=== PATIENT | female | born 1980 | race Caucasian/White ===

== ENCOUNTER 2019-06-24 16:43 | Inpatient (IN) ==
--- OUTSIDE RECORDS SUMMARY | 2019-06-24 16:44 | External Medical Summary | Continuity of Care Document ---
:1980 Author Name Jaylen Olguin, Provider Address Unavailable Unavailable , Care Team Providers Name Role Phone Unavailable Unavailable Unavailable PCP, UNKNOWN Unavailable Unavailable Unavailable Unavailable Unavailable Problems Active medical history not documented Allergies and Adverse Reactions Allergy history not documented Medications Medications not documented Procedures Procedures not documented Immunizations Immunizations not documented Plan of Treatment Planned Observations Planned Goals not documented Results No Known Results Results not documented
[2019-06-24] MEDS ORDERED: SODIUM CHLORIDE 0.9% 1000ML 1,000 ML IV ONE (17:21)
[2019-06-24] MEDS ORDERED: DiphenhydrAMINE HCL 50 MG/ML VIAL IV STA (17:21)
[2019-06-24] MEDS ORDERED: PROCHLORPERAZINE 1 ML IV ONE (17:21)
[2019-06-24 17:45] LABS: Basophils # (auto) 0.01 K/uL (0-0.2); Basophils % (auto) 0.1 %; Eosinophils # (auto) 0.02 K/uL (0-0.5); Eosinophils % (auto) 0.2 %; Hematocrit (blood only) 41.3 % (37-47); Hemoglobin 13.8 g/dL (12.0-16.0); Immature Granulocytes # (auto) 0.03 K/uL (0.00-0.02); Immature Granulocytes % (auto) 0.3 %; Lymphocytes # (auto) 0.55 K/uL (1.2-3.4); Lymphocytes % (auto) 4.7 %; Mean Corpuscular Hemoglobin 28.5 pg (25-34); Mean Corpuscular Hgb Conc 33.4 g/dL (32-36); Mean Corpuscular Volume 85.3 fL (80-100); Mean Platelet Volume 10.6 fL (7.4-10.4); Monocytes # (auto) 0.86 K/uL (0.11-0.59); Monocytes % (auto) 7.3 %; Neutrophils # (auto) 10.33 K/uL (1.4-6.5); Neutrophils % (auto) 87.4 %; Platelet Count 202 K/uL (130-400); RDW Standard Deviation 43.7 fL (36.4-46.3); Red Blood Count 4.84 M/uL (4.2-5.4)
[2019-06-24 17:59] LABS: Base Excess VBG -0.2 mEq/L; HCO3 VBG 22 mmol/L; Oxygen Saturation VBG < 60.0 %; PCO2 VBG 31 mmHg (38-50); PO2 VBG 20 mmHg; pH VBG 7.48 (7.36-7.41)
[2019-06-24 18:02] LABS: Alanine Aminotransferase 946 U/L (12-78); Albumin Level 3.5 gm/dl (3.4-5.0); Aspartate Aminotransferase 318 U/L (15-37); BUN Creatinine Ratio 8.1 (10-20); Blood Urea Nitrogen 7 mg/dl (7-18); Calcium 8.2 mg/dl (8.5-10.1); Carbon Dioxide 21 mmol/L (21-32); Chloride 100 mmol/L (98-107); Est GFR (African American) 100.7; Est GFR (Non-African American) 86.9; Glucose 254 mg/dl (70-99); Lipase 25 U/L (73-393); Potassium 3.5 mmol/L (3.5-5.1); Sodium 132 mmol/L (136-145)
[2019-06-24 18:06] LABS: Appearance Urine Cloudy (Clear); Blood Urine 3+ (Negative); Color Urine Red; Glucose Urine UA 2+ (Negative); Ketones Urine 3+ (Negative); Leukocyte Esterase Urine Trace (Negative); Nitrite Urine Negative (Negative); Specific Gravity Urine 1.015 (1.000-1.030); Urobilinogen Urine Positive (Negative); pH Urine >= 9.0 (4.5-7.5)
[2019-06-24 18:07] LABS: Bilirubin Urine 2+ (Negative); Protein Urine 2+ (Negative)
[2019-06-24 18:09] LABS: Ictotest Urine Positive (Negative); Sulfosalicylic Acid Urine Positive (Negative)
[2019-06-24 18:09] LABS: Albumin Globulin Ratio 0.9 (0.9-2); Alkaline Phosphatase 258 U/L (45-117); Bilirubin,Total 6.8 mg/dl (0.2-1); Globulin 3.8 gm/dl (2.5-4.0); Total Protein 7.3 gm/dl (6.4-8.2); Troponin I < 0.015 ng/ml (0-0.045)
[2019-06-24 18:13] LABS: Bacteria Urine 1+ (Negative); Epithelial Cell Urine >30 /lpf (0-5); RBC Urine >30 /hpf (0-4); WBC Urine >30 /hpf (0-5)
--- NOTE | 2019-06-24 18:14 | XRay Report ---
XR abdomen 2V w PA chest CLINICAL HISTORY: 38 years-old Female presenting with generalized abdominal pain, sob. TECHNIQUE: PA view of the chest and supine and upright views of the abdomen were obtained. COMPARISON: Chest x-ray from 12/10/2015. FINDINGS: Cardiomediastinal silhouette normal. No focal opacity. No large effusion or pneumothorax. Suture lines may be present in the epigastrium and left mid abdomen suggesting Jessi-en-Y gastric bypa ss. Nonobstructive bowel gas pattern. No gross pneumoperitoneum. Evaluation limited by patient body h abitus. Allowing for bowel gas and stool, no calcifications to suggest nephrolithiasis. Osseous structures normal. IMPRESSION: 1. No acute cardiopulmonary disease. 2. No radiographic evidence of acute intra-abdominal pathology. ACT 112: Negative or not required by law. Electronically signed by: Jones Platt M.D. 06/24/2019 6:13 PM
[2019-06-24] MEDS ORDERED: PIPERACILL/TAZOBAC CONSULT ACTIVE PRN (18:34)
[2019-06-24] MEDS ORDERED: PIPERACILLIN/TAZOBACTAM 4.5 GM/120 ML BAG IV ONE (18:34)
[2019-06-24 18:52] LABS: INR 1.3 (0.9-1.1); Partial Thromboplastin Time 27.1 Seconds (21.0-31.0); Prothrombin Time 13.8 Seconds (9.0-12.0)
--- NOTE | 2019-06-24 19:53 | Ultrasound Report ---
US gallbladder CLINICAL HISTORY: 38 years-old Female presenting with ruq pain, elevated lfts. TECHNIQUE: Real-time grayscale and limited color Doppler ultrasound imaging of the abdomen limited to the right upper quadrant was performed. COMPARISON: None. FINDINGS: Pancreas: Largely obscured due to overlying bowel gas. Liver: Mildly hyperechogenic parenchyma, although the right hemidiaphragm remains visible, likely ind icating mild steatosis. The liver measures 17.6 cm in maximal sagittal dimension. Hypoechogenicity in the gallbladder fossa likely focal fatty sparing. Main portal vein patent with normal directional fl ow. Biliary: No intrahepatic biliary ductal dilatation. Common bile duct measures up to 3 mm in diameter. Gallbladder: Gallstones and gallbladder sludge. Top normal thickness of the gallbladder wall measurin g 3 mm. Physiologic gallbladder distention. No pericholecystic fluid. Sonographic Carranza's sign negat clarice. Right kidney: Normal in appearance without evidence of hydronephrosis. Ascites: None. Other: None. IMPRESSION: 1. Cholelithiasis and gallbladder sludge. No convincing evidence of cholecystitis. No biliary ductal dilatation. 2. Hepatic steatosis. Correlate with liver function tests to exclude steatohepatitis as a cause for abdominal pain. ACT 112: Negative or not required by law. Electronically signed by: Jones Platt M.D. 06/24/2019 7:52 PM
--- NOTE | 2019-06-24 20:53 | Emergency Department Note ---
History of Present Illness General Chief complaint: Shortness of Breath/Dyspnea Stated complaint: SOB,ACHES,COUGH Time Seen by Provider: 06/24/19 16:55 Source: patient Mode of arrival: ambulatory Limitations: no limitations History of Present Illness Maximum Pain Intensity: 8 This patient is a 38-year-old female who presents to the emergency department for evaluation of abdominal pain, vomiting, shortness of breath and fever/chills. She reports symptoms have been ongoing for the past 2 to 3 days. She was seen at [facility] last night and reports that she had a CT scan and was told that everything was normal. She reports she has had persistent vomiting and has been unable to keep anything down despite taking Zofran. She has abdominal pain primarily in the upper abdomen. She reports some shortness of breath and rapid breathing. She rates her discomfort an 8/10 and states that nothing makes the pain better or worse. She does report that a coworker informed her that his son tested positive for COVID-19. To her knowledge, the coworker himself was not symptomatic for COVID. The patient denies any urinary symptoms, cough or chest pain. She does note some body aches. She has felt feverish and had chills, but has not taken her temperature. Home Medications Home Medications Medication Instructions Recorded Confirmed Type acetaminophen [Tylenol] 650 mg PO QID PRN 06/24/19 06/24/19 History albuterol sulfate 2 puff INHALATION Q6H PRN 06/24/19 06/24/19 History atorvastatin [Lipitor] 10 mg PO DAILY 06/24/19 06/24/19 History biotin 1 mg PO DAILY 06/24/19 06/24/19 History calcium citrate 250 mg PO BID 06/24/19 06/24/19 History dulaglutide [Trulicity] 1.5 mg SUBCUT WK 06/24/19 06/24/19 History ergocalciferol (vitamin D2) 1,250 mcg PO 2XWK 06/24/19 06/24/19 History [Vitamin D2] gabapentin [Neurontin] 300 - 600 mg PO BID PRN 06/24/19 06/24/19 History insulin lispro [Humalog U-100 0 unit SUBCUT UD 06/24/19 06/24/19 History Insulin] lactulose 15 g PO BID PRN 06/24/19 06/24/19 History mometasone [Nasonex] 2 spray INTRANASAL DAILY PRN 06/24/19 06/24/19 History omeprazole 20 mg PO DAILY 06/24/19 06/24/19 History pediatric multivitamin no.76 1 tab PO DAILY 06/24/19 06/24/19 History [Flintstones Complete] riboflavin (vitamin B2) [Vitamin 400 mg PO DAILY 06/24/19 06/24/19 History B-2] sumatriptan succinate [Imitrex] 0 mg PO .COMPLEX 06/24/19 06/24/19 History terconazole 1 appful VAGINAL HS PRN 06/24/19 06/24/19 History triamcinolone acetonide 1 applic TOPICAL BID PRN 06/24/19 06/24/19 History Allergies Allergy/AdvReac Type Severity Reaction Status Date / Time metformin Allergy Unknown THROAT Verified 06/24/19 18:48 SWELLING topiramate [From Topamax] AdvReac Severe OUT OF Verified 06/24/19 18:48 BODY EXPERIENCE Past Med/Surg History Medical History (Updated 06/24/19 @ 23:38 by Albina Banks PA-C) Diabetes GERD (gastroesophageal reflux disease) Surgical History S/P gastric bypass Social History Feels Safe at Home: Yes Smoking Status: Former smoker Review of Systems A total of 10 systems reviewed and were otherwise negative Physical Exam Vital Signs Vital Signs - 24 hr 06/24/19 16:49 06/24/19 17:13 06/24/19 17:30 Temperature 37.3 C Temperature Source Oral Pulse Rate 132 H 118 H Pulse Rate [Left Finger] Pulse Rate from SpO2 Sensor 117 H Respiratory Rate 24 13 Respiratory Effort / Characteristics Non-Labored Respiratory Depth Normal Blood Pressure 113/80 123/65 Blood Pressure [Left Arm] Blood Pressure Mean 91 78 Blood Pressure Mean [Left Arm] Pulse Oximetry 100 96 99 Oxygen Delivery Method Room Air Room Air Room Air Sepsis Recent Fever Within 48 Hours No Sepsis Action Taken by Nursing No Action Required 06/24/19 17:47 06/24/19 18:00 06/24/19 18:30 Temperature Temperature Source Pulse Rate 123 H 125 H Pulse Rate [Left Finger] 117 H Pulse Rate from SpO2 Sensor Respiratory Rate 24 17 24 Respiratory Effort / Characteristics Respiratory Depth Blood Pressure 135/66 105/60 Blood Pressure [Left Arm] 123/65 Blood Pressure Mean 87 70 Blood Pressure Mean [Left Arm] 84 Pulse Oximetry 99 98 98 Oxygen Delivery Method Room Air Room Air Room Air Sepsis Recent Fever Within 48 Hours Sepsis Action Taken by Nursing 06/24/19 19:51 06/24/19 21:02 06/24/19 21:30 Temperature Temperature Source Pulse Rate 122 H 123 H Pulse Rate [Left Finger] Pulse Rate from SpO2 Sensor 125 H 120 H 123 H Respiratory Rate 20 17 20 Respiratory Effort / Characteristics Respiratory Depth Blood Pressure 112/65 117/71 Blood Pressure [Left Arm] Blood Pressure Mean 83 75 Blood Pressure Mean [Left Arm] Pulse Oximetry 95 97 95 Oxygen Delivery Method Room Air Room Air Room Air Sepsis Recent Fever Within 48 Hours Sepsis Action Taken by Nursing 06/24/19 22:00 06/24/19 23:00 Temperature Temperature Source Pulse Rate 111 H Pulse Rate [Left Finger] 115 H Pulse Rate from SpO2 Sensor Respiratory Rate 26 H 18 Respiratory Effort / Characteristics Respiratory Depth Blood Pressure 110/66 Blood Pressure [Left Arm] 100/61 Blood Pressure Mean 79 Blood Pressure Mean [Left Arm] 74 Pulse Oximetry 96 95 Oxygen Delivery Method Room Air Room Air Sepsis Recent Fever Within 48 Hours Sepsis Action Taken by Nursing VITALS: Vitals are noted on the nurse's note and reviewed by myself. Vital signs stable. GENERAL: This is a 38-year-old female, in no acute distress, well-developed w ell-nourished. SKIN: The skin was without rashes. EARS: External auditory canals clear, tympanic membranes pearly francois without erythema or effusion bilaterally. EYES: Pupils equal round and reactive to light and accommodation. NOSE: Patent, turbinates without inflammation or discharge. MOUTH: Mucous membranes moist. Tonsils are not enlarged. Pharynx without erythema or exudate. NECK: Supple without nuchal rigidity. No lymphadenopathy. HEART: Regular rate and rhythm without murmurs gallops or rubs. LUNGS: Tachypneic. Clear to auscultation bilaterally without wheezes, rales or rhonchi. No retractions or accessory muscle use. ABDOMEN: Positive bowel sounds x 4. Abdomen is soft and nondistended. There is moderate tenderness to palpation throughout the upper abdomen, specifically in the epigastric region and right upper quadrant. No guarding or rebound tenderness. EXTREMITIES: No pitting edema of the lower extremities. NEURO: Patient was alert and oriented to person place and time. Course Consultations Consultation #1: Dr. Perez CRUZ Hospitalist Administered Medications Discontinued Medications Diphenhydramine HCl (Benadryl) 25 mg IV NOW STA Stop: 06/24/19 17:22 Last Admin: 06/24/19 17:44 Dose: 25 mg Documented by: [id number] Sodium Chloride (Nss 1000ml) 1,000 mls @ 999 mls/hr IV .Q1H1M ONE Stop: 06/24/19 18:21 Last Infusion: 06/24/19 19:26 Dose: 0 mls/hr Documented by: [id number] Admin: 06/24/19 17:44 Dose: 999 mls/hr Documented by: [id number] Prochlorperazine (Compazine) 1 mls @ 1 mls/min IV ONE ONE Stop: 06/24/19 17:22 Last Admin: 06/24/19 17:44 Dose: 1 mls/min Documented by: [id number] Piperacillin Sod/Tazobactam Sod (Zosyn) 4.5 gm in 120 mls @ 240 mls/hr IV NOW ONE Stop: 06/24/19 19:03 Last Infusion: 06/24/19 19:57 Dose: 0 mls/hr Documented by: [id number] Admin: 06/24/19 19:26 Dose: 240 mls/hr Documented by: [id number] Medical Decision Making Differential Diagnosis Differential diagnosis includes appendicitis, diverticulitis, bowel obstruction, inflammatory bowel disease, renal colic, PUD, biliary pathology, pancreatitis, mesenteric ischemia, aortic pathology, infection, genitourinary, UTI, perforated viscus, among others. Medical Records Attestation: I reviewed the patient's medical records. Records obtained from [facility]. Patient seen yesterday and had a CT scan with no acute abnormalities, although cholelithiasis was noted. Labs yesterday showed AST 769, ALT 484 and alkaline phosphatase 217. Total bili was 1.6. Home Medications Current Medication List: was personally reviewed by me Laboratory Data Attestation: I reviewed the patient's lab results. Result diagrams: 06/24/19 17:34 06/24/19 17:34 Lab Results 06/24/19 06/24/1920 Range/Units 17:34 17:34 17:34 WBC 11.80 H (4.8-10.8) K/uL RBC 4.84 (4.2-5.4) M/uL Hgb 13.8 (12.0-16.0) g/dL Hct 41.3 (37-47) % MCV 85.3 (80-100) fL MCH 28.5 (25-34) pg MCHC 33.4 (32-36) g/dL RDW Std Deviation 43.7 (36.4-46.3) fL RDW Coeff of Maria Luz 14.0 (11.5-14.5) % Plt Count 202 (130-400) K/uL MPV 10.6 H (7.4-10.4) fL Immature Gran % (Auto) 0.3 % Neut % (Auto) 87.4 % Lymph % (Auto) 4.7 % [place] % (Auto) 7.3 % Eos % (Auto) 0.2 % Baso % (Auto) 0.1 % Immature Gran # (Auto) 0.03 H (0.00-0.02) K/uL Neut # (Auto) 10.33 H (1.4-6.5) K/uL Lymph # (Auto) 0.55 L (1.2-3.4) K/uL [place] # (Auto) 0.86 H (0.11-0.59) K/uL Eos # (Auto) 0.02 (0-0.5) K/uL Baso # (Auto) 0.01 (0-0.2) K/uL PT 13.8 H (9.0-12.0) Seconds INR 1.3 H (0.9-1.1) APTT 27.1 (21.0-31.0) Seconds PTT Ratio 1.0 VBG pH (7.36-7.41) VBG pCO2 (38-50) mmHg VBG pO2 mmHg VBG HCO3 mmol/L VBG O2 Saturation % VBG Base Excess mEq/L Barometric Pressure mm/Hg Sodium 132 L (136-145) mmol/L Potassium 3.5 (3.5-5.1) mmol/L Chloride 100 (98-107) mmol/L Carbon Dioxide 21 (21-32) mmol/L Anion Gap 11.0 (3-11) BUN 7 (7-18) mg/dl Creatinine 0.86 (0.6-1.2) mg/dl Est Cr Clr Drug Dosing Not Reportable Est GFR ( Amer) 100.7 Est GFR (Non-Af Amer) 86.9 BUN/Creatinine Ratio 8.1 L (10-20) Glucose 254 H (70-99) mg/dl Lactate (0.4-2.0) mmol/L Calcium 8.2 L (8.5-10.1) mg/dl Total Bilirubin 6.8 H (0.2-1) mg/dl AST 318 H (15-37) U/L ALT 946 H (12-78) U/L Alkaline Phosphatase 258 H (45-117) U/L Troponin I < 0.015 (0-0.045) ng/ml Total Protein 7.3 (6.4-8.2) gm/dl Albumin 3.5 (3.4-5.0) gm/dl Globulin 3.8 (2.5-4.0) gm/dl Albumin/Globulin Ratio 0.9 (0.9-2) Lipase 25 L (73-393) U/L Urine Color Urine Appearance (Clear) Urine pH (4.5-7.5) Ur Specific [place] (1.000-1.030) Urine Protein (Negative) Urine Glucose (UA) (Negative) Urine Ketones (Negative) Urine Blood (Negative) Urine Nitrite (Negative) Urine Bilirubin (Negative) Urine Urobilinogen (Negative) Ur Leukocyte Esterase (Negative) Urine RBC (0-4) /hpf Urine WBC (0-5) /hpf Ur Epithelial Cells (0-5) /lpf Urine Bacteria (Negative) 06/24/19 06/24/19 06/24/19 Range/Units 17:35 17:36 19:03 WBC (4.8-10.8) K/uL RBC (4.2-5.4) M/uL Hgb (12.0-16.0) g/dL Hct (37-47) % MCV (80-100) fL MCH (25-34) pg MCHC (32-36) g/dL RDW Std Deviation (36.4-46.3) fL RDW Coeff of Maria Luz (11.5-14.5) % Plt Count (130-400) K/uL MPV (7.4-10.4) fL Immature Gran % (Auto) % Neut % (Auto) % Lymph % (Auto) % [place] % (Auto) % Eos % (Auto) % Baso % (Auto) % Immature Gran # (Auto) (0.00-0.02) K/uL Neut # (Auto) (1.4-6.5) K/uL Lymph # (Auto) (1.2-3.4) K/uL [place] # (Auto) (0.11-0.59) K/uL Eos # (Auto) (0-0.5) K/uL Baso # (Auto) (0-0.2) K/uL PT (9.0-12.0) Seconds INR (0.9-1.1) APTT (21.0-31.0) Seconds PTT Ratio VBG pH 7.48 H (7.36-7.41) VBG pCO2 31 L (38-50) mmHg VBG pO2 20 mmHg VBG HCO3 22 mmol/L VBG O2 Saturation < 60.0 % VBG Base Excess -0.2 mEq/L Barometric Pressure 732.8 mm/Hg Sodium (136-145) mmol/L Potassium (3.5-5.1) mmol/L Chloride (98-107) mmol/L Carbon Dioxide (21-32) mmol/L Anion Gap (3-11) BUN (7-18) mg/dl Creatinine (0.6-1.2) mg/dl Est Cr Clr Drug Dosing Est GFR ( Amer) Est GFR (Non-Af Amer) BUN/Creatinine Ratio (10-20) Glucose (70-99) mg/dl Lactate 1.1 (0.4-2.0) mmol/L Calcium (8.5-10.1) mg/dl Total Bilirubin (0.2-1) mg/dl AST (15-37) U/L ALT (12-78) U/L Alkaline Phosphatase (45-117) U/L Troponin I (0-0.045) ng/ml Total Protein (6.4-8.2) gm/dl Albumin (3.4-5.0) gm/dl Globulin (2.5-4.0) gm/dl Albumin/Globulin Ratio (0.9-2) Lipase (73-393) U/L Urine Color Red Urine Appearance Cloudy A (Clear) Urine pH >= 9.0 H (4.5-7.5) Ur Specific [place] 1.015 (1.000-1.030) Urine Protein 2+ H (Negative) Urine Glucose (UA) 2+ H (Negative) Urine Ketones 3+ H (Negative) Urine Blood 3+ H (Negative) Urine Nitrite Negative (Negative) Urine Bilirubin 2+ H (Negative) Urine Urobilinogen Positive H (Negative) Ur Leukocyte Esterase Trace H (Negative) Urine RBC >30 H (0-4) /hpf Urine WBC >30 H (0-5) /hpf Ur Epithelial Cells >30 H (0-5) /lpf Urine Bacteria 1+ H (Negative) Imaging Data Attestation: I personally reviewed and interpreted this imaging study as follows: Radiologist's Impression: XR abdomen 2V w PA chest FINDINGS: Cardiomediastinal silhouette normal. No focal opacity. No large effusion or pneumothorax. Suture lines may be present in the epigastrium and left mid abdomen suggesting Jessi-en-Y gastric bypass. Nonobstructive bowel gas pattern. No gross pneumoperitoneum. Evaluation limited by patient body habitus. Allowing for bowel gas and stool, no calcifications to suggest nephrolithiasis. Osseous structures normal. IMPRESSION: 1. No acute cardiopulmonary disease. 2. No radiographic evidence of acute intra-abdominal pathology. US gallbladder FINDINGS: Pancreas: Largely obscured due to overlying bowel gas. Liver: Mildly hyperechogenic parenchyma, although the right hemidiaphragm remains visible, likely indicating mild steatosis. The liver measures 17.6 cm in maximal sagittal dimension. Hypoechogenicity in the gallbladder fossa likely focal fatty sparing. Main portal vein patent with normal directional flow. Biliary: No intrahepatic biliary ductal dilatation. Common bile duct measures up to 3 mm in diameter. Gallbladder: Gallstones and gallbladder sludge. Top normal thickness of the gallbladder wall measuring 3 mm. Physiologic gallbladder distention. No pericholecystic fluid. Sonographic Carranza's sign negative. Right kidney: Normal in appearance without evidence of hydronephrosis. Ascites: None. Other: None. IMPRESSION: 1. Cholelithiasis and gallbladder sludge. No convincing evidence of cholecystitis. No biliary ductal dilatation. 2. Hepatic steatosis. Correlate with liver function tests to exclude steatohepatitis as a cause for abdominal pain. ECG Data Attestation: I personally reviewed and interpreted this ECG as follows: Indication: + abdominal pain Rate (beats per minute): 106 Rhythm: + sinus tachycardia ECG Intervals/blocks: + Normal QRS ECG [place]: + Normal ECG ST segments: + Normal ST segments Comparison ECG Date: no prior available Blood Pressure Blood Pressure Findings: Normal blood pressure MDM Narrative The patient is a 38-year-old female who presents today complaining of abdominal pain and vomiting. Patient seen last night with apparently negative CT and labs at that time. Labs here reveal a mild leukocytosis of 11.8, no concerning anemia. Patient does have a significant elevation of her LFTs. Her total b ilirubin is 6.8, AST 318, ALT 946, alkaline phosphatase 258. Given this as well as patient's subjective fevers and right upper quadrant abdominal pain, there is concern for cholangitis. Right upper quadrant ultrasound was performed and does show cholelithiasis, although no ductal dilatation. Given these findings, patient will need further work-up for an obstructive process. She was given Zosyn while in the emergency department. Case was discussed with the [facility] hospitalist service, who agreed to evaluate the patient for further care. The patient's case was discussed with Dr. Colmenares, who agreed with my evaluation and treatment plan. Impression & Plan Right upper quadrant abdominal pain, Elevated LFTs, Elevated bilirubin Discharge Plan Visit Data Chief Complaint: Shortness of Breath/Dyspnea Stated Complaint: SOB,ACHES,COUGH ED Provider: Tej Colmenares ED Midlevel Provider: Albina Banks Discharge Problem: Right upper quadrant abdominal pain, Elevated LFTs, Elevated bilirubin Forms Stand Alone Forms: My [facility] Prescriptions Prescriptions: No Action terconazole 0.4 % Cream 1 appful VAGINAL HS PRN (Reason: ..) RF: 0 acetaminophen [Tylenol] 325 mg Tablet 650 mg PO QID PRN (Reason: Pain) RF: 0 atorvastatin [Lipitor] 10 mg tablet 10 mg PO DAILY RF: 0 riboflavin (vitamin B2) [Vitamin B-2] 100 mg Tablet 400 mg PO DAILY RF: 0 sumatriptan succinate [Imitrex] 50 mg Tablet 0 mg PO .COMPLEX RF: 0 triamcinolone acetonide 0.1 % cream 1 applic TOPICAL BID PRN (Reason: BREAKOUTS) RF: 0 mometasone [Nasonex] 50 mcg/actuation [place],Non-Aerosol 2 spray INTRANASAL DAILY PRN (Reason: Nasal Congestion) RF: 0 gabapentin [Neurontin] 300 mg capsule 300 - 600 mg PO BID PRN (Reason: Pain) RF: 0 omeprazole 20 mg capsule,delayed release(DR/EC) 20 mg PO DAILY RF: 0 ergocalciferol (vitamin D2) [Vitamin D2] 1,250 mcg (50,000 unit) Capsule 1,250 mcg PO 2XWK RF: 0 albuterol sulfate 90 mcg/actuation Hfa Aerosol Inhaler 2 puff INHALATION Q6H PRN (Reason: Shortness Of Breath) RF: 0 Humalog U-100 Insulin 100 unit/mL Cartridge 0 unit SUBCUT UD RF: 0 biotin 1 mg Tablet 1 mg PO DAILY RF: 0 lactulose 10 gram/15 mL Solution 15 g PO BID PRN (Reason: Constipation) RF: 0 calcium citrate 250 mg calcium Tablet 250 mg PO BID RF: 0 [place]stones Complete Tablet,Chewable 1 tab PO DAILY RF: 0 Trulicity 1.5 mg/0.5 mL pen injector 1.5 mg SUBCUT WK RF: 0 Referrals Referrals: PCP,NO [Primary Care Provider] -
--- NOTE | 2019-06-24 21:54 | History & Physical Report ---
Date of Service June 24, 2019 Assessment & Plan (1) Right upper quadrant abdominal pain: 38yo C female with history of NAFLD, DM, GERD presenting with 2-3 days of nausea/vomiting/abdominal pain. She was seen at [facility] yesterday with the same complaints - had CT of the abdomen which revealed gallstones, labs with elevated AST/ALT/AP and Tbili. She was ultimately DCd and returns to [facility] with the same complaints. Labs today show improvement in AST but worsening of ALT, Tbili and AP. CT and US with no evidence of cholecystitis, normal bile ducts with no evidence of obstruction. -Admit to medical floor -Follow cultures sent from ER -Check Acetaminophen level, acute hepatitis panel and EtOH level -Check MRCP -Repeat LFTs and INR in AM -GI consultation appreciated -Zosyn 3.375 gm IV q 8 for empiric coverage of intraabdominal infection -Zofran PRN Patient with complaint of SOB/tachypnea as well as fevers/chills/nausea and vomiting. Laboratory evidnence of lymphopenia, mildly elevated INR and abnormal LFTs. VBG suggestive of respiratory alkalosis, low pO2 at 20. She has a coworker who has a son that tested positive recently for COVID-19. The patient does not have any direct contact with known positive individuals. -Covid-19 PCR sent and is negative -Isolation precautions discontinued Present on Admission?: Yes (2) Elevated LFTs: As above- -Repeat LFTs and INR in AM -GI Consult Present on Admission?: Yes (3) Diabetes: Elevated blood glucose here at 254 -Glargine 5u BID -ISS with goal glucose 100 - 140 -Check HgbA1c with AM labs Present on Admission?: Yes (4) GERD (gastroesophageal reflux disease): Chronic. Stable -Protonix daily F/E/N - NSS at 80mL/hr, monitor electrolytes and correct as needed, CC diet as tolerated Ppx - Lovenox Code - Full Dispo - Admit to medical floor Present on Admission?: Yes Admission and Anticipated Discharge Date Admission Date: 06/24/19 Anticipated date of discharge: 06/27/19 History of Present Illness Chief Complaint: RUQ pain, fevers/chills/nausea/vomiting/SOB Primary Care Provider: NO PCP Lanny Naranjo is a 38yo C female with history of DM, GERD, RENDON presenting with 2-3 days of RUQ pain, nausea with multiple episodes of non-bloody/non-bilious emesis, fevers/chills and shortness of breath. She was seen at [facility] yesterday and had a CT scan performed and blood work. She was noted to have abnormal LFTs and was told it was secondary to her RENDON and discharged home. She has been unable to tolerate PO intake despite taking Zofran. Patient does not drink EtOH, takes Tylenol sparingly. She works at [employer]. She denies cough, no recent travel, no sick contacts. Her coworker's son recently tested positive for Covid-19. She works in close proximity to her coworker, however, he has not been displaying any symptoms consistent with Covid-19. ER Course: Benadryl, Zosyn, NSS Allergies Allergy/AdvReac Type Severity Reaction Status Date / Time metformin Allergy Unknown THROAT Verified 06/24/19 18:48 SWELLING topiramate [From Topamax] AdvReac Severe OUT OF Verified 06/24/19 18:48 BODY EXPERIENCE Home Medications Home Medications Medication Instructions Recorded Confirmed Type acetaminophen [Tylenol] 650 mg PO QID PRN 06/24/19 06/24/19 History albuterol sulfate 2 puff INHALATION Q6H PRN 06/24/19 06/24/19 History atorvastatin [Lipitor] 10 mg PO DAILY 06/24/19 06/24/19 History biotin 1 mg PO DAILY 06/24/19 06/24/19 History calcium citrate 250 mg PO BID 06/24/19 06/24/19 History dulaglutide [Trulicity] 1.5 mg SUBCUT WK 06/24/19 06/24/19 History ergocalciferol (vitamin D2) 1,250 mcg PO 2XWK 06/24/19 06/24/19 History [Vitamin D2] gabapentin [Neurontin] 300 - 600 mg PO BID PRN 06/24/19 06/24/19 History insulin lispro [Humalog U-100 0 unit SUBCUT UD 06/24/19 06/24/19 History Insulin] lactulose 15 g PO BID PRN 06/24/19 06/24/19 History mometasone [Nasonex] 2 spray INTRANASAL DAILY PRN 06/24/19 06/24/19 History omeprazole 20 mg PO DAILY 06/24/19 06/24/19 History pediatric multivitamin no.76 1 tab PO DAILY 06/24/19 06/24/19 History [Flintstones Complete] riboflavin (vitamin B2) [Vitamin 400 mg PO DAILY 06/24/19 06/24/19 History B-2] sumatriptan succinate [Imitrex] 0 mg PO .COMPLEX 06/24/19 06/24/19 History terconazole 1 appful VAGINAL HS PRN 06/24/19 06/24/19 History triamcinolone acetonide 1 applic TOPICAL BID PRN 06/24/19 06/24/19 History Past Med/Surg History Medical History (Updated 06/25/19 @ 00:50 by Gris Todd DO) Diabetes GERD (gastroesophageal reflux disease) RENDON (nonalcoholic steatohepatitis) Surgical History S/P gastric bypass Family History (Updated 06/25/19 @ 00:29 by Gris Todd DO) Other No significant family history Social History (Updated 06/25/19 @ 00:29 by Gris Todd DO) Feels Safe at Home: Yes Smoking Status: Former smoker Hx Alcohol Use: No Hx Substance Use: No Review of Systems Review of Systems: All systems reviewed & are unremarkable except as noted in HPI & below Physical Exam Physical Exam: General: patient in mild discomfort, non-toxic in appearance, AA&O x 4 Skin: warm, dry, intact, no rashes or lesions HEENT: NC/AT, PERRL, EOMI, +scleral icterus, conjunctiva without injection, external ear normal to inspection and nontender, nares patent, moist mucus membranes, dentition intact, no oropharyngeal lesions, +Sublingual jaundice, neck supple, trachea midline, no LAD, no thyromegaly, no JVD Heart: +S1/S2, regular, tachycardic, no m/r/g Lungs: equal air entry bilaterally, no rales/rhonchi/wheezes, no respiratory distress Abd: +BS, soft, ND, tenderness in RUQ and epigastric region, no r ebound/guarding/peritoneal signs, no masses/organomegaly/ascites Ext: warm, 2+ pulses in UE/LE bilaterally, no clubbing/cyanosis or edema Neuro: nonfocal, patient AA&O x 4, speech intact, no facial droop, moving all extremities on command with equal strength 5/5 Results & Data Results & Data ([facility]) Vital Signs (Past 12 Hours) Vital Signs Temp Pulse Pulse Resp BP BP Pulse Ox 06/24/19 21:02 122 H 17 112/65 97 06/24/19 19:51 20 95 06/24/19 18:30 125 H 24 105/60 98 06/24/19 18:00 123 H 17 135/66 98 06/24/19 17:47 117 H 24 123/65 99 06/24/19 17:30 118 H 13 123/65 99 06/24/19 17:13 96 06/24/19 16:49 37.3 C 132 H 24 113/80 100 Laboratory Results Lab Results 06/24/19 06/24/19 06/24/19 Range/Units 17:34 17:34 17:34 WBC 11.80 H (4.8-10.8) K/uL RBC 4.84 (4.2-5.4) M/uL Hgb 13.8 (12.0-16.0) g/dL Hct 41.3 (37-47) % MCV 85.3 (80-100) fL MCH 28.5 (25-34) pg MCHC 33.4 (32-36) g/dL RDW Std Deviation 43.7 (36.4-46.3) fL RDW Coeff of Maria Luz 14.0 (11.5-14.5) % Plt Count 202 (130-400) K/uL MPV 10.6 H (7.4-10.4) fL Immature Gran % (Auto) 0.3 % Neut % (Auto) 87.4 % Lymph % (Auto) 4.7 % Dunn % (Auto) 7.3 % Eos % (Auto) 0.2 % Baso % (Auto) 0.1 % Immature Gran # (Auto) 0.03 H (0.00-0.02) K/uL Neut # (Auto) 10.33 H (1.4-6.5) K/uL Lymph # (Auto) 0.55 L (1.2-3.4) K/uL Dunn # (Auto) 0.86 H (0.11-0.59) K/uL Eos # (Auto) 0.02 (0-0.5) K/uL Baso # (Auto) 0.01 (0-0.2) K/uL PT 13.8 H (9.0-12.0) Seconds INR 1.3 H (0.9-1.1) APTT 27.1 (21.0-31.0) Seconds PTT Ratio 1.0 VBG pH (7.36-7.41) VBG pCO2 (38-50) mmHg VBG pO2 mmHg VBG HCO3 mmol/L VBG O2 Saturation % VBG Base Excess mEq/L Barometric Pressure mm/Hg Sodium 132 L (136-145) mmol/L Potassium 3.5 (3.5-5.1) mmol/L Chloride 100 (98-107) mmol/L Carbon Dioxide 21 (21-32) mmol/L Anion Gap 11.0 (3-11) BUN 7 (7-18) mg/dl Creatinine 0.86 (0.6-1.2) mg/dl Est Cr Clr Drug Dosing Not Reportable Est GFR ( Amer) 100.7 Est GFR (Non-Af Amer) 86.9 BUN/Creatinine Ratio 8.1 L (10-20) Glucose 254 H (70-99) mg/dl Lactate (0.4-2.0) mmol/L Calcium 8.2 L (8.5-10.1) mg/dl Total Bilirubin 6.8 H (0.2-1) mg/dl AST 318 H (15-37) U/L ALT 946 H (12-78) U/L Alkaline Phosphatase 258 H (45-117) U/L Troponin I < 0.015 (0-0.045) ng/ml Total Protein 7.3 (6.4-8.2) gm/dl Albumin 3.5 (3.4-5.0) gm/dl Globulin 3.8 (2.5-4.0) gm/dl Albumin/Globulin Ratio 0.9 (0.9-2) Lipase 25 L (73-393) U/L Urine Color Urine Appearance (Clear) Urine pH (4.5-7.5) Ur Specific Montgomery (1.000-1.030) Urine Protein (Negative) Urine Glucose (UA) (Negative) Urine Ketones (Negative) Urine Blood (Negative) Urine Nitrite (Negative) Urine Bilirubin (Negative) Urine Urobilinogen (Negative) Ur Leukocyte Esterase (Negative) Urine RBC (0-4) /hpf Urine WBC (0-5) /hpf Ur Epithelial Cells (0-5) /lpf Urine Bacteria (Negative) COVID-19 PCR (Negative) 06/24/19 06/24/19 06/24/19 Range/Units 17:34 17:35 17:36 WBC (4.8-10.8) K/uL RBC (4.2-5.4) M/uL Hgb (12.0-16.0) g/dL Hct (37-47) % MCV (80-100) fL MCH (25-34) pg MCHC (32-36) g/dL RDW Std Deviation (36.4-46.3) fL RDW Coeff of Maria Luz (11.5-14.5) % Plt Count (130-400) K/uL MPV (7.4-10.4) fL Immature Gran % (Auto) % Neut % (Auto) % Lymph % (Auto) % Dunn % (Auto) % Eos % (Auto) % Baso % (Auto) % Immature Gran # (Auto) (0.00-0.02) K/uL Neut # (Auto) (1.4-6.5) K/uL Lymph # (Auto) (1.2-3.4) K/uL Dunn # (Auto) (0.11-0.59) K/uL Eos # (Auto) (0-0.5) K/uL Baso # (Auto) (0-0.2) K/uL PT (9.0-12.0) Seconds INR (0.9-1.1) APTT (21.0-31.0) Seconds PTT Ratio VBG pH 7.48 H (7.36-7.41) VBG pCO2 31 L (38-50) mmHg VBG pO2 20 mmHg VBG HCO3 22 mmol/L VBG O2 Saturation < 60.0 % VBG Base Excess -0.2 mEq/L Barometric Pressure 732.8 mm/Hg Sodium (136-145) mmol/L Potassium (3.5-5.1) mmol/L Chloride (98-107) mmol/L Carbon Dioxide (21-32) mmol/L Anion Gap (3-11) BUN (7-18) mg/dl Creatinine (0.6-1.2) mg/dl Est Cr Clr Drug Dosing Est GFR ( Amer) Est GFR (Non-Af Amer) BUN/Creatinine Ratio (10-20) Glucose (70-99) mg/dl Lactate (0.4-2.0) mmol/L Calcium (8.5-10.1) mg/dl Total Bilirubin (0.2-1) mg/dl AST (15-37) U/L ALT (12-78) U/L Alkaline Phosphatase (45-117) U/L Troponin I (0-0.045) ng/ml Total Protein (6.4-8.2) gm/dl Albumin (3.4-5.0) gm/dl Globulin (2.5-4.0) gm/dl Albumin/Globulin Ratio (0.9-2) Lipase (73-393) U/L Urine Color Red Urine Appearance Cloudy A (Clear) Urine pH >= 9.0 H (4.5-7.5) Ur Specific Montgomery 1.015 (1.000-1.030) Urine Protein 2+ H (Negative) Urine Glucose (UA) 2+ H (Negative) Urine Ketones 3+ H (Negative) Urine Blood 3+ H (Negative) Urine Nitrite Negative (Negative) Urine Bilirubin 2+ H (Negative) Urine Urobilinogen Positive H (Negative) Ur Leukocyte Esterase Trace H (Negative) Urine RBC >30 H (0-4) /hpf Urine WBC >30 H (0-5) /hpf Ur Epithelial Cells >30 H (0-5) /lpf Urine Bacteria 1+ H (Negative) COVID-19 PCR NEGATIVE (Negative) 06/24/19 Range/Units 19:03 WBC (4.8-10.8) K/uL RBC (4.2-5.4) M/uL Hgb (12.0-16.0) g/dL Hct (37-47) % MCV (80-100) fL MCH (25-34) pg MCHC (32-36) g/dL RDW Std Deviation (36.4-46.3) fL RDW Coeff of Maria Luz (11.5-14.5) % Plt Count (130-400) K/uL MPV (7.4-10.4) fL Immature Gran % (Auto) % Neut % (Auto) % Lymph % (Auto) % Dunn % (Auto) % Eos % (Auto) % Baso % (Auto) % Immature Gran # (Auto) (0.00-0.02) K/uL Neut # (Auto) (1.4-6.5) K/uL Lymph # (Auto) (1.2-3.4) K/uL Dunn # (Auto) (0.11-0.59) K/uL Eos # (Auto) (0-0.5) K/uL Baso # (Auto) (0-0.2) K/uL PT (9.0-12.0) Seconds INR (0.9-1.1) APTT (21.0-31.0) Seconds PTT Ratio VBG pH (7.36-7.41) VBG pCO2 (38-50) mmHg VBG pO2 mmHg VBG HCO3 mmol/L VBG O2 Saturation % VBG Base Excess mEq/L Barometric Pressure mm/Hg Sodium (136-145) mmol/L Potassium (3.5-5.1) mmol/L Chloride (98-107) mmol/L Carbon Dioxide (21-32) mmol/L Anion Gap (3-11) BUN (7-18) mg/dl Creatinine (0.6-1.2) mg/dl Est Cr Clr Drug Dosing Est GFR ( Amer) Est GFR (Non-Af Amer) BUN/Creatinine Ratio (10-20) Glucose (70-99) mg/dl Lactate 1.1 (0.4-2.0) mmol/L Calcium (8.5-10.1) mg/dl Total Bilirubin (0.2-1) mg/dl AST (15-37) U/L ALT (12-78) U/L Alkaline Phosphatase (45-117) U/L Troponin I (0-0.045) ng/ml Total Protein (6.4-8.2) gm/dl Albumin (3.4-5.0) gm/dl Globulin (2.5-4.0) gm/dl Albumin/Globulin Ratio (0.9-2) Lipase (73-393) U/L Urine Color Urine Appearance (Clear) Urine pH (4.5-7.5) Ur Specific Montgomery (1.000-1.030) Urine Protein (Negative) Urine Glucose (UA) (Negative) Urine Ketones (Negative) Urine Blood (Negative) Urine Nitrite (Negative) Urine Bilirubin (Negative) Urine Urobilinogen (Negative) Ur Leukocyte Esterase (Negative) Urine RBC (0-4) /hpf Urine WBC (0-5) /hpf Ur Epithelial Cells (0-5) /lpf Urine Bacteria (Negative) COVID-19 PCR (Negative) Diagnostic Findings US gallbladder CLINICAL HISTORY: 38 years-old Female presenting with ruq pain, elevated lfts. TECHNIQUE: Real-time grayscale and limited color Doppler ultrasound imaging of the abdomen limited to the right upper quadrant was performed. COMPARISON: None. FINDINGS: Pancreas: Largely obscured due to overlying bowel gas. Liver: Mildly hyperechogenic parenchyma, although the right hemidiaphragm remains visible, likely indicating mild steatosis. The liver measures 17.6 cm in maximal sagittal dimension. Hypoechogenicity in the gallbladder fossa likely focal fatty sparing. Main portal vein patent with normal directional flow. Biliary: No intrahepatic biliary ductal dilatation. Common bile duct measures up to 3 mm in diameter. Gallbladder: Gallstones and gallbladder sludge. Top normal thickness of the gallbladder wall measuring 3 mm. Physiologic gallbladder distention. No pericholecystic fluid. Sonographic Carranza's sign negative. Right kidney: Normal in appearance without evidence of hydronephrosis. Ascites: None. Other: None. IMPRESSION: 1. Cholelithiasis and gallbladder sludge. No convincing evidence of cholecystitis. No biliary ductal dilatation. 2. Hepatic steatosis. Correlate with liver function tests to exclude steatohepatitis as a cause for abdominal pain. ACT 112: Negative or not required by law. Electronically signed by: Jones Platt M.D. 06/24/2019 7:52 PM Dictated: 06/24/191949 Transcribed: 06/24/191949 XR abdomen 2V w PA chest CLINICAL HISTORY: 38 years-old Female presenting with generalized abdominal pain, sob. TECHNIQUE: PA view of the chest and supine and upright views of the abdomen were obtained. COMPARISON: Chest x-ray from 12/10/2015. FINDINGS: Cardiomediastinal silhouette normal. No focal opacity. No large effusion or pneumothorax. Suture lines may be present in the epigastrium and left mid abdomen suggesting Jessi-en-Y gastric bypass. Nonobstructive bowel gas pattern. No gross pneumoperitoneum. Evaluation limited by patient body habitus. Allowing for bowel gas and stool, no calcifications to suggest nephrolithiasis. Osseous structures normal. IMPRESSION: 1. No acute cardiopulmonary disease. 2. No radiographic evidence of acute intra-abdominal pathology. ACT 112: Negative or not required by law. Electronically signed by: Jones Platt M.D. 06/24/2019 6:13 PM Dictated: 06/24/191810 Transcribed: 06/24/191810 FROM PRAVIN ANDERS 06/23/19: CT ABDOMEN WITH NO ACUTE ABNORMALITIES NPY=490, POX=224, EW=010, Tbili=1.6 ECG Additional Comments: Sinus tachycardia at 106bpm, normal axis, normal intervals, no acute ischemic changes Code Status & VTE Plan Code Status FULL VTE Prophylaxis Plan VTE Prophylaxis will be ordered: Yes PG Care Time/CCT Total # of Minutes Spent Total Time Spent with Patient: Total time spent is greater than 50% in coordination of care (as documented) at patient's floor/unit and/or counseling patient: Coding Level of Care Code 43910 Initial Inpt Care Lvl 3 Diagnoses Right upper quadrant abdominal pain R10.11 Elevated LFTs R79.89 Diabetes E11.9; Z79.4 Diabetes mellitus type: type 2 Diabetes mellitus longterm insulin use: with assistant terminal manager use Diabetes mellitus complication status: without complication GERD (gastroesophageal reflux disease) K21.9 Esophagitis presence: esophagitis presence not specified (1) Diabetes Diabetes mellitus type: type 2 Diabetes mellitus longterm insulin use: with assistant terminal manager use Diabetes mellitus complication status: without complication Qualified Code(s): E11.9 - Type 2 diabetes mellitus without complications; Z79.4 - retirement (current) use of insulin (2) GERD (gastroesophageal reflux disease) Esophagitis presence: esophagitis presence not specified Qualified Code(s): K21.9 - Gastro-esophageal reflux disease without esophagitis
[2019-06-25] MEDS ORDERED: PIPERACILL/TAZOBAC CONSULT ACTIVE PRN (00:16)
[2019-06-25] MEDS ORDERED: ALBUTEROL HFA 8 GM INHALER INH PRN (00:16)
[2019-06-25] MEDS ORDERED: GLUCOSE 40% GEL 15 GM TUBE PO PRN (00:16)
[2019-06-25] MEDS ORDERED: DEXTROSE 50% 50 ML SYRINGE IV PRN (00:16)
[2019-06-25] MEDS ORDERED: GLUCAGON FOR INJ 1 MG VIAL SQ PRN (00:16)
[2019-06-25] MEDS ORDERED: CARBOHYDRATES FOR HYPOGLYCEMIA PO PRN (00:16)
[2019-06-25] MEDS ORDERED: GLUCOSE 10 TABS/TUBE PO PRN (00:16)
[2019-06-25] MEDS: PIPERACILLIN/TAZOBACTAM 4.5 GM in DEXTROSE 5% 100 ML IV SCH ×2 (01:26→10:52)
[2019-06-25] MEDS: SODIUM CHLORIDE 0.9% 1000ML 1,000 ML IV SCH ×2 (01:26→14:44)
[2019-06-25] MEDS: INSULIN GLARGINE SOLOSTAR 100 UNITS/ML 3 ML PEN SC SCH ×3 (01:27→21:58)
[2019-06-25] MEDS: INSULIN ASPART 100 UNITS/ML 3 ML PEN SC SCH ×5 (01:27→18:28)
[2019-06-25] MEDS ORDERED: KETOROLAC TROMETHAMINE 15 MG/ML VIAL IV ONE (01:39)
[2019-06-25 01:48] LABS: Hepatitis B Surface Antigen Neg (Neg)
[2019-06-25 02:07] LABS: Hepatitis C IgG 13Yrs+Old_Rflx Neg (Neg)
[2019-06-25 06:00] LABS: Basophils # (auto) 0.01 K/uL (0-0.2); Basophils % (auto) 0.1 %; Eosinophils # (auto) 0.03 K/uL (0-0.5); Eosinophils % (auto) 0.3 %; Hematocrit (blood only) 40.7 % (37-47); Hemoglobin 13.5 g/dL (12.0-16.0); Immature Granulocytes # (auto) 0.04 K/uL (0.00-0.02); Immature Granulocytes % (auto) 0.4 %; Lymphocytes # (auto) 0.62 K/uL (1.2-3.4); Lymphocytes % (auto) 6.4 %; Mean Corpuscular Hemoglobin 28.9 pg (25-34); Mean Corpuscular Hgb Conc 33.2 g/dL (32-36); Mean Corpuscular Volume 87.2 fL (80-100); Monocytes # (auto) 0.53 K/uL (0.11-0.59); Monocytes % (auto) 5.5 %; Neutrophils # (auto) 8.41 K/uL (1.4-6.5); Neutrophils % (auto) 87.3 %; Platelet Count 200 K/uL (130-400); RDW Coefficient of Variation 14.3 % (11.5-14.5); RDW Standard Deviation 45.9 fL (36.4-46.3); Red Blood Count 4.67 M/uL (4.2-5.4); White Blood Count 9.64 K/uL (4.8-10.8)
[2019-06-25 06:13] LABS: INR 1.2 (0.9-1.1); Prothrombin Time 12.4 Seconds (9.0-12.0)
[2019-06-25 06:35] LABS: BUN Creatinine Ratio 8.7 (10-20); Calcium 8.1 mg/dl (8.5-10.1); Creatinine Clr Calc Pharmacy 100.1 ml/min; Est GFR (African American) 115.1; Est GFR (Non-African American) 99.3
[2019-06-25 06:41] LABS: Bilirubin,Total 5.8 mg/dl (0.2-1); Total Protein 6.8 gm/dl (6.4-8.2)
[2019-06-25 07:16] LABS: Potassium 3.4 mmol/L (3.5-5.1)
[2019-06-25 07:20] LABS: Bilirubin Direct 4.8 mg/dl (0-0.2)
[2019-06-25] MEDS ORDERED: CALCIUM CITRATE 250 MG PO SCH (09:00)
[2019-06-25] MEDS ORDERED: NON-FORMULARY MEDICATION (Biotin 1 MG) PO SCH (09:00)
[2019-06-25] MEDS: ONDANSETRON INJ 2 MG/ML 2 ML VIAL IV PRN (09:17)
[2019-06-25] MEDS: ENOXAPARIN INJ 40 MG/0.4 ML SYR SQ SCH (09:22)
[2019-06-25] MEDS: PANTOprazole 40 MG TAB PO SCH (09:22)
--- NOTE | 2019-06-25 10:46 | Magnetic Resonance Report ---
MRCP CLINICAL HISTORY: Abnormal LFTs, ?choledocholithiasis TECHNIQUE: Utilizing a 1.5 Alexandra magnet and dedicated coil, multiplanar, multiecho imaging of the [facility] er abdomen was performed utilizing heavily T2 weighted pulsing sequences without IV contrast. COMPARISON STUDY: Right upper quadrant ultrasound and KUB June 24, 2019. FINDINGS: Multiple gallstones within the gallbladder are noted. The gallbladder is mildly distended. No intra or extrahepatic biliary ductal dilatation is present. Common bile duct measures 3 mm in brooks aleyda. No definite common bile duct calculi are identified. There is relatively abrupt smooth narrowing of the distal common bile duct. Although probably artifactual, a distal common bile duct calculus, m easuring approximately 7 mm, cannot be excluded on this examination. The course and caliber of the ma in pancreatic duct is normal. No hepatic lesions are identified on this unenhanced examination. Proba ble fatty infiltration of the liver is better depicted on abdominal ultrasound. Mild hepatosplenomega ly is noted. Unenhanced images of the adrenal glands, kidneys and pancreas are unremarkable with the exception of mild pancreatic glandular. There is no abdominal lymphadenopathy or ascites. IMPRESSION: 1. No biliary ductal dilatation. No definite choledocholithiasis. Although probably artifactual, a di stal common bile duct calculus, measuring approximately 7 mm, cannot be excluded on this exam. 2. Cholelithiasis and mild gallbladder distention. 3. Suspected fatty infiltration of the liver, better depicted on prior ultrasound. Moderate splenomeg issac. 4. Pancreatic glandular atrophy. ACT 112: Negative or not required by law. Electronically signed by: Osman Camacho M.D. 06/25/2019 10:45 AM
[2019-06-25] MEDS ORDERED: Nursing to Pharmacy Communication ONE (12:12)
--- NOTE | 2019-06-25 13:35 | Hospitalist Progress Note ---
Date of Service June 25, 2019 Assessment & Plan (1) Choledocholithiasis with acute cholecystitis with obstruction: 38yo C female with history of NAFLD, DM, GERD, and gastric bypass surgery, presenting with 2-3 days of nausea/vomiting/abdominal pain. She was seen at [facility] the day prior to admission with the same complaints - had CT of the abdomen which revealed gallstones, labs with elevated AST/ALT/AP and Tbili. She was ultimately DCd and returns to [facility] with the same complaints. Labs here show improvement in AST but worsening of ALT, Tbili and AP. CT and US with no evidence of cholecystitis, normal bile ducts with no evidence of obstruction. Patient presented with right upper quadrant and epigastric pain with nausea and vomiting x3 days She has cholelithiasis present on ultrasound LFTs are significantly elevated in a cholestatic pattern and are starting to trend downward today Remains with some mild right upper quadrant pain and nausea, but improved from previous MRCP shows questionable distal CBD obstruction with 7 mm calculus versus artifact -Make n.p.o. -Continue IV fluids and replace electrolytes as needed -Pain control as needed with morphine, would avoid NSAIDs in the setting of history of gastric bypass surgery -Awaiting GI consultation to see if ERCP is indicated-no evidence of sepsis, but does have a mild leukocytosis, no fever-ERCP can likely wait till Wednesday -Follow LFTs in the morning Blood cultures drawn-no growth to date -Convert Zosyn to Cipro/Flagyl as per pharmacy recommendation as she is a community-acquired intra-abdominal infection -Follow CBC-leukocytosis is now resolved -Follow chemistry (2) Right upper quadrant abdominal pain: Secondary to the above (3) Elevated LFTs: As above -Hold statin from home (4) Diabetes: Typically wears an insulin pot at home with Humalog-this has been held here Continue Lantus 5 units twice daily With some hyperglycemia here -Continue insulin sliding scale Hemoglobin A1c is pending here -Continue gabapentin presumably for diabetic peripheral neuropathy -Home atorvastatin is on hold for elevated LFTs (5) GERD (gastroesophageal reflux disease): Chronic. Stable -Protonix daily (6) RENDON (nonalcoholic steatohepatitis): Noted Secondary to morbid obesity -Should be followed routinely as an outpatient (7) S/P gastric bypass: In 2014 at [facility] -Should avoid NSAIDs Should be followed regularly for nutritional status and continue vitamin supplements (8) Hypokalemia: Replaced with potassium chloride 10 mEq IV x1 -Follow BMP in the morning (9) Situational anxiety: Patient with complaint of anxiety related to recent possible COVID exposure-now denies SOB/tachypnea as well as fevers/chills She did have nausea and vomiting as above related to her choledocholithiasis. Laboratory evidnence of lymphopenia, mildly elevated INR and abnormal LFTs. VBG suggestive of respiratory alkalosis, low pO2 at 20. She has a coworker who has a son that tested positive recently for COVID-19. The patient does not have any direct contact with known positive individuals. -Covid-19 PCR sent and is negative -Isolation precautions discontinued -Observe for development of future symptoms of COVID-19 (10) DVT prophylaxis: Lovenox SQ-Will hold for Wednesday in case of ERCP Disposition-continued stay Admission and Anticipated Discharge Date Admission Date: June 24, 2019 Anticipated date of discharge: 06/27/19 Subjective Patient reports was feeling a little bit better overnight and then tried to eat something around 3 in the morning and then since then has had a return of her right upper quadrant and epigastric pain and nausea. It is not nearly as severe as yesterday when it was a 9/10 in severity, but now is a 2/10. She has no appetite at all. She denies chest pains or shortness of breath, no fevers/sweats/chills. She did have a coworker who is working [id number] with her all last week who son that lives with him just tested positive for COVID and she is very anxious about getting it. She is a history of gastric bypass and had an EGD approximately 2 years ago after having nausea and vomiting and was told that everything was normal. Her gastric bypass surgery and this EGD were both done at [facility] in [place]. Review of Systems Review of Systems: All systems reviewed & are unremarkable except as noted in HPI & below Physical Exam Constitutional: WD/WN, vitals as above Neck: trachea midline, no thyromegaly Respiratory: normal respiratory effort, lungs clear to auscultation Cardiovascular: RRR, no murmur, no edema Chest (Breasts): Chest: normal inspection of chest Gastrointestinal (Abdomen): Inspection/Auscultation: normal bowel sounds; abdomen not distended Percussion/Palpation: + abdomen tender (In RUQ and epigastric region without guarding or rebound tenderness) and abdomen soft Musculoskeletal: Extremities: extremities normal to inspection; no cyanosis and no clubbing Skin: no rashes, warm and dry Neurologic: moves all extremities and awake; no focal motor deficits Psychiatric: A+Ox3, euthymic affect Lymphatic: no lymphedema Results & Data Results & Data ([facility]) Vital Signs (Past 12 Hours) Vital Signs Temp Pulse Resp BP Pulse Ox 06/25/19 07:05 36.9 C 100 H 18 95/62 L 98 Laboratory Results 06/25/19 06/25/19 06/25/19 Range/Units 12:05 08:08 06:44 WBC (4.8-10.8) K/uL RBC (4.2-5.4) M/uL Hgb (12.0-16.0) g/dL Hct (37-47) % MCV (80-100) fL MCH (25-34) pg MCHC (32-36) g/dL RDW Std Deviation (36.4-46.3) fL RDW Coeff of Maria Luz (11.5-14.5) % Plt Count (130-400) K/uL MPV (7.4-10.4) fL Immature Gran % (Auto) % Neut % (Auto) % Lymph % (Auto) % Dolores % (Auto) % Eos % (Auto) % Baso % (Auto) % Immature Gran # (Auto) (0.00-0.02) K/uL Neut # (Auto) (1.4-6.5) K/uL Lymph # (Auto) (1.2-3.4) K/uL Dolores # (Auto) (0.11-0.59) K/uL Eos # (Auto) (0-0.5) K/uL Baso # (Auto) (0-0.2) K/uL PT (9.0-12.0) Seconds INR (0.9-1.1) APTT (21.0-31.0) Seconds PTT Ratio VBG pH (7.36-7.41) VBG pCO2 (38-50) mmHg VBG pO2 mmHg VBG HCO3 mmol/L VBG O2 Saturation % VBG Base Excess mEq/L Barometric Pressure mm/Hg Sodium (136-145) mmol/L Potassium 3.4 L (3.5-5.1) mmol/L Chloride (98-107) mmol/L Carbon Dioxide (21-32) mmol/L Anion Gap (3-11) BUN (7-18) mg/dl Creatinine (0.6-1.2) mg/dl Est Cr Clr Drug Dosing Est GFR ( Amer) Est GFR (Non-Af Amer) BUN/Creatinine Ratio (10-20) Glucose (70-99) mg/dl POC Glucose 183 H 179 H (70-99) mg/dl Estimat Average Glucose Hemoglobin A1c Lactate (0.4-2.0) mmol/L Calcium (8.5-10.1) mg/dl Ferritin (8-388) ng/ml Total Bilirubin (0.2-1) mg/dl Direct Bilirubin 4.8 H (0-0.2) mg/dl AST 114 H (15-37) U/L ALT (12-78) U/L Alkaline Phosphatase (45-117) U/L Lactate Dehydrogenase (84-246) U/L Troponin I (0-0.045) ng/ml Total Protein (6.4-8.2) gm/dl Albumin (3.4-5.0) gm/dl Globulin (2.5-4.0) gm/dl Albumin/Globulin Ratio (0.9-2) Lipase (73-393) U/L Procalcitonin (0-0.5) ng/ml Urine Color Urine Appearance (Clear) Urine pH (4.5-7.5) Ur Specific [place] (1.000-1.030) Urine Protein (Negative) Urine Glucose (UA) (Negative) Urine Ketones (Negative) Urine Blood (Negative) Urine Nitrite (Negative) Urine Bilirubin (Negative) Urine Urobilinogen (Negative) Ur Leukocyte Esterase (Negative) Urine RBC (0-4) /hpf Urine WBC (0-5) /hpf Ur Epithelial Cells (0-5) /lpf Urine Bacteria (Negative) POC Ur Test Acetaminophen Screen Acetaminophen COVID-19 PCR (Negative) Hepatitis A IgM Ab Hep Bs Antigen (Neg) Hep B Core IgM Ab Hepatitis C Antibody (Neg) 06/25/19 06/25/19 06/25/19 Range/Units 05:32 05:32 05:32 WBC (4.8-10.8) K/uL RBC (4.2-5.4) M/uL Hgb (12.0-16.0) g/dL Hct (37-47) % MCV (80-100) fL MCH (25-34) pg MCHC (32-36) g/dL RDW Std Deviation (36.4-46.3) fL RDW Coeff of Maria Luz (11.5-14.5) % Plt Count (130-400) K/uL MPV (7.4-10.4) fL Immature Gran % (Auto) % Neut % (Auto) % Lymph % (Auto) % Dolores % (Auto) % Eos % (Auto) % Baso % (Auto) % Immature Gran # (Auto) (0.00-0.02) K/uL Neut # (Auto) (1.4-6.5) K/uL Lymph # (Auto) (1.2-3.4) K/uL Dolores # (Auto) (0.11-0.59) K/uL Eos # (Auto) (0-0.5) K/uL Baso # (Auto) (0-0.2) K/uL PT (9.0-12.0) Seconds INR (0.9-1.1) APTT (21.0-31.0) Seconds PTT Ratio VBG pH (7.36-7.41) VBG pCO2 (38-50) mmHg VBG pO2 mmHg VBG HCO3 mmol/L VBG O2 Saturation % VBG Base Excess mEq/L Barometric Pressure mm/Hg Sodium 135 L (136-145) mmol/L Potassium (3.5-5.1) mmol/L Chloride 103 (98-107) mmol/L Carbon Dioxide 23 (21-32) mmol/L Anion Gap 8.0 (3-11) BUN 7 (7-18) mg/dl Creatinine 0.77 (0.6-1.2) mg/dl Est Cr Clr Drug Dosing 100.1 Est GFR ( Amer) 115.1 Est GFR (Non-Af Amer) 99.3 BUN/Creatinine Ratio 8.7 L (10-20) Glucose 270 H (70-99) mg/dl POC Glucose (70-99) mg/dl Estimat Average Glucose Pending Hemoglobin A1c Pending Lactate (0.4-2.0) mmol/L Calcium 8.1 L (8.5-10.1) mg/dl Ferritin (8-388) ng/ml Total Bilirubin 5.8 H (0.2-1) mg/dl Direct Bilirubin (0-0.2) mg/dl AST (15-37) U/L ALT 638 H (12-78) U/L Alkaline Phosphatase 223 H (45-117) U/L Lactate Dehydrogenase 205 (84-246) U/L Troponin I (0-0.045) ng/ml Total Protein 6.8 (6.4-8.2) gm/dl Albumin 3.0 L (3.4-5.0) gm/dl Globulin (2.5-4.0) gm/dl Albumin/Globulin Ratio (0.9-2) Lipase (73-393) U/L Procalcitonin (0-0.5) ng/ml Urine Color Urine Appearance (Clear) Urine pH (4.5-7.5) Ur Specific [place] (1.000-1.030) Urine Protein (Negative) Urine Glucose (UA) (Negative) Urine Ketones (Negative) Urine Blood (Negative) Urine Nitrite (Negative) Urine Bilirubin (Negative) Urine Urobilinogen (Negative) Ur Leukocyte Esterase (Negative) Urine RBC (0-4) /hpf Urine WBC (0-5) /hpf Ur Epithelial Cells (0-5) /lpf Urine Bacteria (Negative) POC Ur Test Acetaminophen Screen Acetaminophen COVID-19 PCR (Negative) Hepatitis A IgM Ab Hep Bs Antigen (Neg) Hep B Core IgM Ab Hepatitis C Antibody (Neg) 06/25/19 06/25/19 06/25/19 Range/Units 05:32 05:32 00:30 WBC 9.64 (4.8-10.8) K/uL RBC 4.67 (4.2-5.4) M/uL Hgb 13.5 (12.0-16.0) g/dL Hct 40.7 (37-47) % MCV 87.2 (80-100) fL MCH 28.9 (25-34) pg MCHC 33.2 (32-36) g/dL RDW Std Deviation 45.9 (36.4-46.3) fL RDW Coeff of Maria Luz 14.3 (11.5-14.5) % Plt Count 200 (130-400) K/uL MPV 11.0 H (7.4-10.4) fL Immature Gran % (Auto) 0.4 % Neut % (Auto) 87.3 % Lymph % (Auto) 6.4 % Dolores % (Auto) 5.5 % Eos % (Auto) 0.3 % Baso % (Auto) 0.1 % Immature Gran # (Auto) 0.04 H (0.00-0.02) K/uL Neut # (Auto) 8.41 H (1.4-6.5) K/uL Lymph # (Auto) 0.62 L (1.2-3.4) K/uL Dolores # (Auto) 0.53 (0.11-0.59) K/uL Eos # (Auto) 0.03 (0-0.5) K/uL Baso # (Auto) 0.01 (0-0.2) K/uL PT 12.4 H (9.0-12.0) Seconds INR 1.2 H (0.9-1.1) APTT (21.0-31.0) Seconds PTT Ratio VBG pH (7.36-7.41) VBG pCO2 (38-50) mmHg VBG pO2 mmHg VBG HCO3 mmol/L VBG O2 Saturation % VBG Base Excess mEq/L Barometric Pressure mm/Hg Sodium (136-145) mmol/L Potassium (3.5-5.1) mmol/L Chloride (98-107) mmol/L Carbon Dioxide (21-32) mmol/L Anion Gap (3-11) BUN (7-18) mg/dl Creatinine (0.6-1.2) mg/dl Est Cr Clr Drug Dosing Est GFR ( Amer) Est GFR (Non-Af Amer) BUN/Creatinine Ratio (10-20) Glucose (70-99) mg/dl POC Glucose (70-99) mg/dl Estimat Average Glucose Hemoglobin A1c Lactate (0.4-2.0) mmol/L Calcium (8.5-10.1) mg/dl Ferritin (8-388) ng/ml Total Bilirubin (0.2-1) mg/dl Direct Bilirubin (0-0.2) mg/dl AST (15-37) U/L ALT (12-78) U/L Alkaline Phosphatase (45-117) U/L Lactate Dehydrogenase (84-246) U/L Troponin I (0-0.045) ng/ml Total Protein (6.4-8.2) gm/dl Albumin (3.4-5.0) gm/dl Globulin (2.5-4.0) gm/dl Albumin/Globulin Ratio (0.9-2) Lipase (73-393) U/L Procalcitonin (0-0.5) ng/ml Urine Color Urine Appearance (Clear) Urine pH (4.5-7.5) Ur Specific [place] (1.000-1.030) Urine Protein (Negative) Urine Glucose (UA) (Negative) Urine Ketones (Negative) Urine Blood (Negative) Urine Nitrite (Negative) Urine Bilirubin (Negative) Urine Urobilinogen (Negative) Ur Leukocyte Esterase (Negative) Urine RBC (0-4) /hpf Urine WBC (0-5) /hpf Ur Epithelial Cells (0-5) /lpf Urine Bacteria (Negative) POC Ur Test Acetaminophen Screen Pending Acetaminophen COVID-19 PCR (Negative) Hepatitis A IgM Ab Hep Bs Antigen (Neg) Hep B Core IgM Ab Hepatitis C Antibody (Neg) 06/25/19 06/25/19 06/25/19 Range/Units 00:30 00:30 00:30 WBC (4.8-10.8) K/uL RBC (4.2-5.4) M/uL Hgb (12.0-16.0) g/dL Hct (37-47) % MCV (80-100) fL MCH (25-34) pg MCHC (32-36) g/dL RDW Std Deviation (36.4-46.3) fL RDW Coeff of Maria Luz (11.5-14.5) % Plt Count (130-400) K/uL MPV (7.4-10.4) fL Immature Gran % (Auto) % Neut % (Auto) % Lymph % (Auto) % Dolores % (Auto) % Eos % (Auto) % Baso % (Auto) % Immature Gran # (Auto) (0.00-0.02) K/uL Neut # (Auto) (1.4-6.5) K/uL Lymph # (Auto) (1.2-3.4) K/uL Dolores # (Auto) (0.11-0.59) K/uL Eos # (Auto) (0-0.5) K/uL Baso # (Auto) (0-0.2) K/uL PT (9.0-12.0) Seconds INR (0.9-1.1) APTT (21.0-31.0) Seconds PTT Ratio VBG pH (7.36-7.41) VBG pCO2 (38-50) mmHg VBG pO2 mmHg VBG HCO3 mmol/L VBG O2 Saturation % VBG Base Excess mEq/L Barometric Pressure mm/Hg Sodium (136-145) mmol/L Potassium (3.5-5.1) mmol/L Chloride (98-107) mmol/L Carbon Dioxide (21-32) mmol/L Anion Gap (3-11) BUN (7-18) mg/dl Creatinine (0.6-1.2) mg/dl Est Cr Clr Drug Dosing Est GFR ( Amer) Est GFR (Non-Af Amer) BUN/Creatinine Ratio (10-20) Glucose (70-99) mg/dl POC Glucose 188 H (70-99) mg/dl Estimat Average Glucose Hemoglobin A1c Lactate (0.4-2.0) mmol/L Calcium (8.5-10.1) mg/dl Ferritin (8-388) ng/ml Total Bilirubin (0.2-1) mg/dl Direct Bilirubin (0-0.2) mg/dl AST (15-37) U/L ALT (12-78) U/L Alkaline Phosphatase (45-117) U/L Lactate Dehydrogenase (84-246) U/L Troponin I (0-0.045) ng/ml Total Protein (6.4-8.2) gm/dl Albumin (3.4-5.0) gm/dl Globulin (2.5-4.0) gm/dl Albumin/Globulin Ratio (0.9-2) Lipase (73-393) U/L Procalcitonin 8.14 H (0-0.5) ng/ml Urine Color Urine Appearance (Clear) Urine pH (4.5-7.5) Ur Specific [place] (1.000-1.030) Urine Protein (Negative) Urine Glucose (UA) (Negative) Urine Ketones (Negative) Urine Blood (Negative) Urine Nitrite (Negative) Urine Bilirubin (Negative) Urine Urobilinogen (Negative) Ur Leukocyte Esterase (Negative) Urine RBC (0-4) /hpf Urine WBC (0-5) /hpf Ur Epithelial Cells (0-5) /lpf Urine Bacteria (Negative) POC Ur Test Acetaminophen Screen Acetaminophen Cancelled COVID-19 PCR (Negative) Hepatitis A IgM Ab Hep Bs Antigen (Neg) Hep B Core IgM Ab Hepatitis C Antibody (Neg) 06/25/19 06/25/19 06/25/19 Range/Units 00:30 00:30 00:30 WBC (4.8-10.8) K/uL RBC (4.2-5.4) M/uL Hgb (12.0-16.0) g/dL Hct (37-47) % MCV (80-100) fL MCH (25-34) pg MCHC (32-36) g/dL RDW Std Deviation (36.4-46.3) fL RDW Coeff of Maria Luz (11.5-14.5) % Plt Count (130-400) K/uL MPV (7.4-10.4) fL Immature Gran % (Auto) % Neut % (Auto) % Lymph % (Auto) % Dolores % (Auto) % Eos % (Auto) % Baso % (Auto) % Immature Gran # (Auto) (0.00-0.02) K/uL Neut # (Auto) (1.4-6.5) K/uL Lymph # (Auto) (1.2-3.4) K/uL Dolores # (Auto) (0.11-0.59) K/uL Eos # (Auto) (0-0.5) K/uL Baso # (Auto) (0-0.2) K/uL PT (9.0-12.0) Seconds INR (0.9-1.1) APTT (21.0-31.0) Seconds PTT Ratio VBG pH (7.36-7.41) VBG pCO2 (38-50) mmHg VBG pO2 mmHg VBG HCO3 mmol/L VBG O2 Saturation % VBG Base Excess mEq/L Barometric Pressure mm/Hg Sodium (136-145) mmol/L Potassium (3.5-5.1) mmol/L Chloride (98-107) mmol/L Carbon Dioxide (21-32) mmol/L Anion Gap (3-11) BUN (7-18) mg/dl Creatinine (0.6-1.2) mg/dl Est Cr Clr Drug Dosing Est GFR ( Amer) Est GFR (Non-Af Amer) BUN/Creatinine Ratio (10-20) Glucose (70-99) mg/dl POC Glucose (70-99) mg/dl Estimat Average Glucose Hemoglobin A1c Lactate (0.4-2.0) mmol/L Calcium (8.5-10.1) mg/dl Ferritin 687.1 H (8-388) ng/ml Total Bilirubin (0.2-1) mg/dl Direct Bilirubin (0-0.2) mg/dl AST (15-37) U/L ALT (12-78) U/L Alkaline Phosphatase (45-117) U/L Lactate Dehydrogenase (84-246) U/L Troponin I (0-0.045) ng/ml Total Protein (6.4-8.2) gm/dl Albumin (3.4-5.0) gm/dl Globulin (2.5-4.0) gm/dl Albumin/Globulin Ratio (0.9-2) Lipase (73-393) U/L Procalcitonin (0-0.5) ng/ml Urine Color Urine Appearance (Clear) Urine pH (4.5-7.5) Ur Specific [place] (1.000-1.030) Urine Protein (Negative) Urine Glucose (UA) (Negative) Urine Ketones (Negative) Urine Blood (Negative) Urine Nitrite (Negative) Urine Bilirubin (Negative) Urine Urobilinogen (Negative) Ur Leukocyte Esterase (Negative) Urine RBC (0-4) /hpf Urine WBC (0-5) /hpf Ur Epithelial Cells (0-5) /lpf Urine Bacteria (Negative) POC Ur Test Acetaminophen Screen Acetaminophen COVID-19 PCR (Negative) Hepatitis A IgM Ab Pending Hep Bs Antigen Neg (Neg) Hep B Core IgM Ab Pending Hepatitis C Antibody Neg (Neg) 06/24/19 06/24/19 06/24/19 Range/Units 19:03 17:36 17:35 WBC (4.8-10.8) K/uL RBC (4.2-5.4) M/uL Hgb (12.0-16.0) g/dL Hct (37-47) % MCV (80-100) fL MCH (25-34) pg MCHC (32-36) g/dL RDW Std Deviation (36.4-46.3) fL RDW Coeff of Maria Luz (11.5-14.5) % Plt Count (130-400) K/uL MPV (7.4-10.4) fL Immature Gran % (Auto) % Neut % (Auto) % Lymph % (Auto) % Dolores % (Auto) % Eos % (Auto) % Baso % (Auto) % Immature Gran # (Auto) (0.00-0.02) K/uL Neut # (Auto) (1.4-6.5) K/uL Lymph # (Auto) (1.2-3.4) K/uL Dolores # (Auto) (0.11-0.59) K/uL Eos # (Auto) (0-0.5) K/uL Baso # (Auto) (0-0.2) K/uL PT (9.0-12.0) Seconds INR (0.9-1.1) APTT (21.0-31.0) Seconds PTT Ratio VBG pH 7.48 H (7.36-7.41) VBG pCO2 31 L (38-50) mmHg VBG pO2 20 mmHg VBG HCO3 22 mmol/L VBG O2 Saturation < 60.0 % VBG Base Excess -0.2 mEq/L Barometric Pressure 732.8 mm/Hg Sodium (136-145) mmol/L Potassium (3.5-5.1) mmol/L Chloride (98-107) mmol/L Carbon Dioxide (21-32) mmol/L Anion Gap (3-11) BUN (7-18) mg/dl Creatinine (0.6-1.2) mg/dl Est Cr Clr Drug Dosing Est GFR ( Amer) Est GFR (Non-Af Amer) BUN/Creatinine Ratio (10-20) Glucose (70-99) mg/dl POC Glucose (70-99) mg/dl Estimat Average Glucose Hemoglobin A1c Lactate 1.1 (0.4-2.0) mmol/L Calcium (8.5-10.1) mg/dl Ferritin (8-388) ng/ml Total Bilirubin (0.2-1) mg/dl Direct Bilirubin (0-0.2) mg/dl AST (15-37) U/L ALT (12-78) U/L Alkaline Phosphatase (45-117) U/L Lactate Dehydrogenase (84-246) U/L Troponin I (0-0.045) ng/ml Total Protein (6.4-8.2) gm/dl Albumin (3.4-5.0) gm/dl Globulin (2.5-4.0) gm/dl Albumin/Globulin Ratio (0.9-2) Lipase (73-393) U/L Procalcitonin (0-0.5) ng/ml Urine Color Red Urine Appearance Cloudy A (Clear) Urine pH >= 9.0 H (4.5-7.5) Ur Specific [place] 1.015 (1.000-1.030) Urine Protein 2+ H (Negative) Urine Glucose (UA) 2+ H (Negative) Urine Ketones 3+ H (Negative) Urine Blood 3+ H (Negative) Urine Nitrite Negative (Negative) Urine Bilirubin 2+ H (Negative) Urine Urobilinogen Positive H (Negative) Ur Leukocyte Esterase Trace H (Negative) Urine RBC >30 H (0-4) /hpf Urine WBC >30 H (0-5) /hpf Ur Epithelial Cells >30 H (0-5) /lpf Urine Bacteria 1+ H (Negative) POC Ur Test Acetaminophen Screen Acetaminophen COVID-19 PCR (Negative) Hepatitis A IgM Ab Hep Bs Antigen (Neg) Hep B Core IgM Ab Hepatitis C Antibody (Neg) 06/24/19 06/24/19 06/24/19 Range/Units 17:35 17:34 17:34 WBC (4.8-10.8) K/uL RBC (4.2-5.4) M/uL Hgb (12.0-16.0) g/dL Hct (37-47) % MCV (80-100) fL MCH (25-34) pg MCHC (32-36) g/dL RDW Std Deviation (36.4-46.3) fL RDW Coeff of Maria Luz (11.5-14.5) % Plt Count (130-400) K/uL MPV (7.4-10.4) fL Immature Gran % (Auto) % Neut % (Auto) % Lymph % (Auto) % Dolores % (Auto) % Eos % (Auto) % Baso % (Auto) % Immature Gran # (Auto) (0.00-0.02) K/uL Neut # (Auto) (1.4-6.5) K/uL Lymph # (Auto) (1.2-3.4) K/uL Dolores # (Auto) (0.11-0.59) K/uL Eos # (Auto) (0-0.5) K/uL Baso # (Auto) (0-0.2) K/uL PT 13.8 H (9.0-12.0) Seconds INR 1.3 H (0.9-1.1) APTT 27.1 (21.0-31.0) Seconds PTT Ratio 1.0 VBG pH (7.36-7.41) VBG pCO2 (38-50) mmHg VBG pO2 mmHg VBG HCO3 mmol/L VBG O2 Saturation % VBG Base Excess mEq/L Barometric Pressure mm/Hg Sodium (136-145) mmol/L Potassium (3.5-5.1) mmol/L Chloride (98-107) mmol/L Carbon Dioxide (21-32) mmol/L Anion Gap (3-11) BUN (7-18) mg/dl Creatinine (0.6-1.2) mg/dl Est Cr Clr Drug Dosing Est GFR ( Amer) Est GFR (Non-Af Amer) BUN/Creatinine Ratio (10-20) Glucose (70-99) mg/dl POC Glucose (70-99) mg/dl Estimat Average Glucose Hemoglobin A1c Lactate (0.4-2.0) mmol/L Calcium (8.5-10.1) mg/dl Ferritin (8-388) ng/ml Total Bilirubin (0.2-1) mg/dl Direct Bilirubin (0-0.2) mg/dl AST (15-37) U/L ALT (12-78) U/L Alkaline Phosphatase (45-117) U/L Lactate Dehydrogenase (84-246) U/L Troponin I (0-0.045) ng/ml Total Protein (6.4-8.2) gm/dl Albumin (3.4-5.0) gm/dl Globulin (2.5-4.0) gm/dl Albumin/Globulin Ratio (0.9-2) Lipase (73-393) U/L Procalcitonin (0-0.5) ng/ml Urine Color Urine Appearance (Clear) Urine pH (4.5-7.5) Ur Specific [place] (1.000-1.030) Urine Protein (Negative) Urine Glucose (UA) (Negative) Urine Ketones (Negative) Urine Blood (Negative) Urine Nitrite (Negative) Urine Bilirubin (Negative) Urine Urobilinogen (Negative) Ur Leukocyte Esterase (Negative) Urine RBC (0-4) /hpf Urine WBC (0-5) /hpf Ur Epithelial Cells (0-5) /lpf Urine Bacteria (Negative) POC Ur Test Pending Acetaminophen Screen Acetaminophen COVID-19 PCR NEGATIVE (Negative) Hepatitis A IgM Ab Hep Bs Antigen (Neg) Hep B Core IgM Ab Hepatitis C Antibody (Neg) 06/24/19 06/24/19 Range/Units 17:34 17:34 WBC 11.80 H (4.8-10.8) K/uL RBC 4.84 (4.2-5.4) M/uL Hgb 13.8 (12.0-16.0) g/dL Hct 41.3 (37-47) % MCV 85.3 (80-100) fL MCH 28.5 (25-34) pg MCHC 33.4 (32-36) g/dL RDW Std Deviation 43.7 (36.4-46.3) fL RDW Coeff of Maria Luz 14.0 (11.5-14.5) % Plt Count 202 (130-400) K/uL MPV 10.6 H (7.4-10.4) fL Immature Gran % (Auto) 0.3 % Neut % (Auto) 87.4 % Lymph % (Auto) 4.7 % [place] % (Auto) 7.3 % Eos % (Auto) 0.2 % Baso % (Auto) 0.1 % Immature Gran # (Auto) 0.03 H (0.00-0.02) K/uL Neut # (Auto) 10.33 H (1.4-6.5) K/uL Lymph # (Auto) 0.55 L (1.2-3.4) K/uL Dolores # (Auto) 0.86 H (0.11-0.59) K/uL Eos # (Auto) 0.02 (0-0.5) K/uL Baso # (Auto) 0.01 (0-0.2) K/uL PT (9.0-12.0) Seconds INR (0.9-1.1) APTT (21.0-31.0) Seconds PTT Ratio VBG pH (7.36-7.41) VBG pCO2 (38-50) mmHg VBG pO2 mmHg VBG HCO3 mmol/L VBG O2 Saturation % VBG Base Excess mEq/L Barometric Pressure mm/Hg Sodium 132 L (136-145) mmol/L Potassium 3.5 (3.5-5.1) mmol/L Chloride 100 (98-107) mmol/L Carbon Dioxide 21 (21-32) mmol/L Anion Gap 11.0 (3-11) BUN 7 (7-18) mg/dl Creatinine 0.86 (0.6-1.2) mg/dl Est Cr Clr Drug Dosing Not Reportable Est GFR ( Amer) 100.7 Est GFR (Non-Af Amer) 86.9 BUN/Creatinine Ratio 8.1 L (10-20) Glucose 254 H (70-99) mg/dl POC Glucose (70-99) mg/dl Estimat Average Glucose Hemoglobin A1c Lactate (0.4-2.0) mmol/L Calcium 8.2 L (8.5-10.1) mg/dl Ferritin (8-388) ng/ml Total Bilirubin 6.8 H (0.2-1) mg/dl Direct Bilirubin (0-0.2) mg/dl AST 318 H (15-37) U/L ALT 946 H (12-78) U/L Alkaline Phosphatase 258 H (45-117) U/L Lactate Dehydrogenase (84-246) U/L Troponin I < 0.015 (0-0.045) ng/ml Total Protein 7.3 (6.4-8.2) gm/dl Albumin 3.5 (3.4-5.0) gm/dl Globulin 3.8 (2.5-4.0) gm/dl Albumin/Globulin Ratio 0.9 (0.9-2) Lipase 25 L (73-393) U/L Procalcitonin (0-0.5) ng/ml Urine Color Urine Appearance (Clear) Urine pH (4.5-7.5) Ur Specific [place] (1.000-1.030) Urine Protein (Negative) Urine Glucose (UA) (Negative) Urine Ketones (Negative) Urine Blood (Negative) Urine Nitrite (Negative) Urine Bilirubin (Negative) Urine Urobilinogen (Negative) Ur Leukocyte Esterase (Negative) Urine RBC (0-4) /hpf Urine WBC (0-5) /hpf Ur Epithelial Cells (0-5) /lpf Urine Bacteria (Negative) POC Ur Test Acetaminophen Screen Acetaminophen COVID-19 PCR (Negative) Hepatitis A IgM Ab Hep Bs Antigen (Neg) Hep B Core IgM Ab Hepatitis C Antibody (Neg) PG Care Time/CCT Total # of Minutes Spent Total Time Spent with Patient: Total time spent is greater than 50% in coordination of care (as documented) at patient's floor/unit and/or counseling patient: Coding Level of Care Code 66173 Subseq Hosp Care Lvl 3 Diagnoses Choledocholithiasis with acute cholecystitis with obstruction K80.43 Right upper quadrant abdominal pain R10.11 Elevated LFTs R79.89 Diabetes E11.9; Z79.4 Diabetes mellitus type: type 2 Diabetes mellitus terminal superintendent insulin use: with terminal superintendent use Diabetes mellitus complication status: without complication GERD (gastroesophageal reflux disease) K21.9 Esophagitis presence: esophagitis presence not specified RENDON (nonalcoholic steatohepatitis) K75.81 S/P gastric bypass Z98.84 Hypokalemia E87.6 Situational anxiety F41.8 DVT prophylaxis Z29.9 (1) Diabetes Diabetes mellitus type: type 2 Diabetes mellitus terminal superintendent insulin use: with terminal superintendent use Diabetes mellitus complication status: without complication Qualified Code(s): E11.9 - Type 2 diabetes mellitus without complications; 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
[2019-06-25] MEDS ORDERED: POTASSIUM CHLORIDE / WTR 10 MEQ/100 ML PLCT IV ONE (14:00)
[2019-06-25] MEDS: MoRPHine SULFATE 2 MG/ML CARP IV PRN ×2 (14:39→18:42)
[2019-06-25] MEDS: CIPROFLOXACIN / D5W 400 MG/200 ML BAG IV SCH (16:28)
[2019-06-25] MEDS: metroNIDAZOLE 500 MG/100 ML BAG IV SCH (18:48)
--- NOTE | 2019-06-25 22:52 | Electrocardiogram Report ---
Test Reason : Blood Pressure : / mmHG Vent. Rate : 106 BPM Atrial Rate : 106 BPM P-R Int : 118 ms QRS Dur : 078 ms QT Int : 334 ms P-R-T Axes : 060 074 048 degrees QTc Int : 443 ms Sinus tachycardia Otherwise normal ECG No previous ECGs available Confirmed by Doug Dean ([id number]) on 06/25/2019 10:52:03 PM Referred By: REFERRED SELF Confirmed By:Doug Dean
[2019-06-26] MEDS: INSULIN ASPART 100 UNITS/ML 3 ML PEN SC SCH ×5 (00:20→20:38)
[2019-06-26] MEDS: metroNIDAZOLE 500 MG/100 ML BAG IV SCH ×3 (02:58→20:42)
[2019-06-26] MEDS: CIPROFLOXACIN / D5W 400 MG/200 ML BAG IV SCH ×2 (03:02→18:22)
[2019-06-26 05:53] LABS: Estimated Average Glucose 203 mg/dl; Hemoglobin A1C 8.7 % (4.5-5.6)
[2019-06-26 06:01] LABS: Basophils # (auto) 0.01 K/uL (0-0.2); Basophils % (auto) 0.1 %; Eosinophils # (auto) 0.07 K/uL (0-0.5); Hematocrit (blood only) 37.3 % (37-47); Hemoglobin 12.2 g/dL (12.0-16.0); Immature Granulocytes # (auto) 0.02 K/uL (0.00-0.02); Immature Granulocytes % (auto) 0.3 %; Lymphocytes % (auto) 11.2 %; Mean Corpuscular Hemoglobin 27.9 pg (25-34); Mean Corpuscular Hgb Conc 32.7 g/dL (32-36); Mean Corpuscular Volume 85.2 fL (80-100); Mean Platelet Volume 10.8 fL (7.4-10.4); Monocytes % (auto) 9.8 %; Neutrophils # (auto) 5.52 K/uL (1.4-6.5); Neutrophils % (auto) 77.6 %; Platelet Count 190 K/uL (130-400); RDW Coefficient of Variation 14.1 % (11.5-14.5); RDW Standard Deviation 44.4 fL (36.4-46.3); Red Blood Count 4.38 M/uL (4.2-5.4); White Blood Count 7.12 K/uL (4.8-10.8)
[2019-06-26 06:40] LABS: Alanine Aminotransferase 356 U/L (12-78); Albumin Level 2.6 gm/dl (3.4-5.0); Alkaline Phosphatase 212 U/L (45-117); Aspartate Aminotransferase 37 U/L (15-37); BUN Creatinine Ratio 13.9 (10-20); Bilirubin Direct 2.7 mg/dl (0-0.2); Bilirubin,Total 3.4 mg/dl (0.2-1); Blood Urea Nitrogen 6 mg/dl (7-18); Calcium 8.1 mg/dl (8.5-10.1); Carbon Dioxide 21 mmol/L (21-32); Chloride 107 mmol/L (98-107); Creatinine Clr Calc Pharmacy 192.6 ml/min; Est GFR (African American) > 150.0; Glucose 161 mg/dl (70-99); Potassium 3.7 mmol/L (3.5-5.1); Sodium 135 mmol/L (136-145); Total Protein 6.2 gm/dl (6.4-8.2)
[2019-06-26] MEDS: MoRPHine SULFATE 2 MG/ML CARP IV PRN (08:29)
[2019-06-26] MEDS: PANTOprazole 40 MG TAB PO SCH (08:32)
--- NOTE | 2019-06-26 09:45 | Gastrointestinal Consultation ---
Date of Consultation June 26, 2019 Assessment & Plan (1) Elevated LFTs: 38 year old female with history of RYGB presnting w/ abd pain, nausea/vomiting imaging and labs concerning for biliary obstruction. NPO Consult general surgery for cholecystectomy Will discuss with advanced endoscopist given RYGB status, may need to be transfered for ERCP Continue symptomatic management for now Trend LFTs Thank you for allowing us to participate in the care of this patient. Please call with any acute changes, questions or concerns. Please see addendum below with additional recommendation from my supervising physician. Supervising Physician Co-Signing Physician Notes I have personally seen and examined the patient wit RAMON Jackson. Her note reflects my exam and findings. I agree with her impression and plan. Needs ERCP , lap assisted given gastric bypass hx. Rashad Paige M.D. History of Present Illness Reason for Consultation: elevated LFTs Requesting Physician: Mana Attending Physician: Clif Adair MD History of Present Illness 38 year old female with history of RYGB, RENDON prestening with abd pain, nausea/vomiting. GI asked to evaluate given elevated LFTs and gallstones. Pt was seen and evaluated, chart reviewed. notes intermittent UGI symptoms. Before this episodes was in February. Reports epigastric pain w/ radiation under both breasts associated with nausea/vomiting x 48 hours. Did some some specks of BRB in the emeesis. No black or bloody stools. No fever, chills, CP, SOB. MRCP: Cholelithiasis and gallbladder sludge. No convincing evidence of cholecystitis. No biliary ductal dilatation. Hepatic steatosis. Correlate with liver function tests to exclude steatohepatitis as a cause for abdominal pain. ABD US: CBD 3mm Allergies Allergy/AdvReac Type Severity Reaction Status Date / Time metformin Allergy Unknown THROAT Verified 06/24/19 18:48 SWELLING topiramate [From Topamax] AdvReac Severe OUT OF Verified 06/24/19 18:48 BODY EXPERIENCE Home Medications Home Medications Medication Instructions Recorded Confirmed Type acetaminophen [Tylenol] 650 mg PO QID PRN 06/24/19 06/24/19 History albuterol sulfate 2 puff INHALATION Q6H PRN 06/24/19 06/24/19 History atorvastatin [Lipitor] 10 mg PO DAILY 06/24/19 06/24/19 History biotin 1 mg PO DAILY 06/24/19 06/24/19 History calcium citrate 250 mg PO BID 06/24/19 06/24/19 History dulaglutide [Trulicity] 1.5 mg SUBCUT WK 06/24/19 06/24/19 History ergocalciferol (vitamin D2) 1,250 mcg PO 2XWK 06/24/19 06/24/19 History [Vitamin D2] gabapentin [Neurontin] 300 - 600 mg PO BID PRN 06/24/19 06/24/19 History insulin lispro [Humalog U-100 0 unit SUBCUT UD 06/24/19 06/24/19 History Insulin] lactulose 15 g PO BID PRN 06/24/19 06/24/19 History mometasone [Nasonex] 2 spray INTRANASAL DAILY PRN 06/24/19 06/24/19 History omeprazole 20 mg PO DAILY 06/24/19 06/24/19 History pediatric multivitamin no.76 1 tab PO DAILY 06/24/19 06/24/19 History [Flintstones Complete] riboflavin (vitamin B2) [Vitamin 400 mg PO DAILY 06/24/19 06/24/19 History B-2] sumatriptan succinate [Imitrex] 0 mg PO .COMPLEX 06/24/19 06/24/19 History terconazole 1 appful VAGINAL HS PRN 06/24/19 06/24/19 History triamcinolone acetonide 1 applic TOPICAL BID PRN 06/24/19 06/24/19 History Patient History Medical History (Updated 06/25/19 @ 13:53 by Marylu Mancuso MD) Diabetes GERD (gastroesophageal reflux disease) RENDON (nonalcoholic steatohepatitis) Surgical History (Updated 06/25/19 @ 13:40 by Marylu Mancuso MD) S/P gastric bypass Family History (Updated 06/25/19 @ 00:29 by Gris Todd DO) Other No significant family history Social History (Updated 06/25/19 @ 00:29 by Gris Todd DO) Preferred Language: Yoruba Communication Ability: Effective Deadener Required: No Beliefs That Will Affect Care: None Current Living Situation: Spouse Other Information That Helps Us Care for You: No Feels Safe at Home: Yes Safety Concerns: Feels Safe At This Time Smoking Status: Former smoker Tobacco Type: cigarettes ; Do You Dip or Chew Tobacco: No ; Second Hand Exposure: No ; Tobacco Cessation Education Requested by Patient: No Hx Alcohol Use: No Hx Substance Use: No Review of Systems Gastrointestinal: + abdominal pain, + nausea and + vomiting Physical Exam Constitutional: no acute distress Respiratory: normal respiratory effort Cardiovascular: Rate/Rhythm: regular rate Gastrointestinal (Abdomen): Percussion/Palpation: + abdomen tender and abdomen soft Skin: no rashes, warm and dry Results & Data ([facility]) Vital Signs (Past 12 Hours) Vital Signs Temp Pulse Resp BP Pulse Ox 06/26/19 07:54 37.2 C 87 16 94/64 L 97 06/25/19 23:54 37.2 C 95 H 17 107/66 96 Laboratory Results 06/26/19 06/26/19 06/26/19 Range/Units 06:00 05:41 05:41 WBC 7.12 (4.8-10.8) K/uL RBC 4.38 (4.2-5.4) M/uL Hgb 12.2 (12.0-16.0) g/dL Hct 37.3 (37-47) % MCV 85.2 (80-100) fL MCH 27.9 (25-34) pg MCHC 32.7 (32-36) g/dL RDW Std Deviation 44.4 (36.4-46.3) fL RDW Coeff of Maria Luz 14.1 (11.5-14.5) % Plt Count 190 (130-400) K/uL MPV 10.8 H (7.4-10.4) fL Immature Gran % (Auto) 0.3 % Neut % (Auto) 77.6 % Lymph % (Auto) 11.2 % [place] % (Auto) 9.8 % Eos % (Auto) 1.0 % Baso % (Auto) 0.1 % Immature Gran # (Auto) 0.02 (0.00-0.02) K/uL Neut # (Auto) 5.52 (1.4-6.5) K/uL Lymph # (Auto) 0.80 L (1.2-3.4) K/uL [place] # (Auto) 0.70 H (0.11-0.59) K/uL Eos # (Auto) 0.07 (0-0.5) K/uL Baso # (Auto) 0.01 (0-0.2) K/uL Sodium 135 L (136-145) mmol/L Potassium 3.7 (3.5-5.1) mmol/L Chloride 107 (98-107) mmol/L Carbon Dioxide 21 (21-32) mmol/L Anion Gap 8.0 (3-11) BUN 6 L (7-18) mg/dl Creatinine 0.40 L D (0.6-1.2) mg/dl Est Cr Clr Drug Dosing 192.6 ml/min Est GFR ( Amer) > 150.0 Est GFR (Non-Af Amer) 134.0 BUN/Creatinine Ratio 13.9 (10-20) Glucose 161 H (70-99) mg/dl POC Glucose 143 H (70-99) mg/dl Estimat Average Glucose mg/dl Hemoglobin A1c (4.5-5.6) % Calcium 8.1 L (8.5-10.1) mg/dl Total Bilirubin 3.4 H (0.2-1) mg/dl Direct Bilirubin 2.7 H (0-0.2) mg/dl AST 37 (15-37) U/L ALT 356 H (12-78) U/L Alkaline Phosphatase 212 H (45-117) U/L Total Protein 6.2 L (6.4-8.2) gm/dl Albumin 2.6 L (3.4-5.0) gm/dl 06/25/19 06/25/19 06/25/19 Range/Units 23:49 18:24 12:05 WBC (4.8-10.8) K/uL RBC (4.2-5.4) M/uL Hgb (12.0-16.0) g/dL Hct (37-47) % MCV (80-100) fL MCH (25-34) pg MCHC (32-36) g/dL RDW Std Deviation (36.4-46.3) fL RDW Coeff of Maria Luz (11.5-14.5) % Plt Count (130-400) K/uL MPV (7.4-10.4) fL Immature Gran % (Auto) % Neut % (Auto) % Lymph % (Auto) % [place] % (Auto) % Eos % (Auto) % Baso % (Auto) % Immature Gran # (Auto) (0.00-0.02) K/uL Neut # (Auto) (1.4-6.5) K/uL Lymph # (Auto) (1.2-3.4) K/uL [place] # (Auto) (0.11-0.59) K/uL Eos # (Auto) (0-0.5) K/uL Baso # (Auto) (0-0.2) K/uL Sodium (136-145) mmol/L Potassium (3.5-5.1) mmol/L Chloride (98-107) mmol/L Carbon Dioxide (21-32) mmol/L Anion Gap (3-11) BUN (7-18) mg/dl Creatinine (0.6-1.2) mg/dl Est Cr Clr Drug Dosing ml/min Est GFR ( Amer) Est GFR (Non-Af Amer) BUN/Creatinine Ratio (10-20) Glucose (70-99) mg/dl POC Glucose 167 H 185 H 183 H (70-99) mg/dl Estimat Average Glucose mg/dl Hemoglobin A1c (4.5-5.6) % Calcium (8.5-10.1) mg/dl Total Bilirubin (0.2-1) mg/dl Direct Bilirubin (0-0.2) mg/dl AST (15-37) U/L ALT (12-78) U/L Alkaline Phosphatase (45-117) U/L Total Protein (6.4-8.2) gm/dl Albumin (3.4-5.0) gm/dl 06/25/19 06/25/19 Range/Units 06:44 05:32 WBC (4.8-10.8) K/uL RBC (4.2-5.4) M/uL Hgb (12.0-16.0) g/dL Hct (37-47) % MCV (80-100) fL MCH (25-34) pg MCHC (32-36) g/dL RDW Std Deviation (36.4-46.3) fL RDW Coeff of Maria Luz (11.5-14.5) % Plt Count (130-400) K/uL MPV (7.4-10.4) fL Immature Gran % (Auto) % Neut % (Auto) % Lymph % (Auto) % [place] % (Auto) % Eos % (Auto) % Baso % (Auto) % Immature Gran # (Auto) (0.00-0.02) K/uL Neut # (Auto) (1.4-6.5) K/uL Lymph # (Auto) (1.2-3.4) K/uL [place] # (Auto) (0.11-0.59) K/uL Eos # (Auto) (0-0.5) K/uL Baso # (Auto) (0-0.2) K/uL Sodium (136-145) mmol/L Potassium 3.4 L (3.5-5.1) mmol/L Chloride (98-107) mmol/L Carbon Dioxide (21-32) mmol/L Anion Gap (3-11) BUN (7-18) mg/dl Creatinine (0.6-1.2) mg/dl Est Cr Clr Drug Dosing ml/min Est GFR ( Amer) Est GFR (Non-Af Amer) BUN/Creatinine Ratio (10-20) Glucose (70-99) mg/dl POC Glucose (70-99) mg/dl Estimat Average Glucose 203 mg/dl Hemoglobin A1c 8.7 H (4.5-5.6) % Calcium (8.5-10.1) mg/dl Total Bilirubin (0.2-1) mg/dl Direct Bilirubin 4.8 H (0-0.2) mg/dl AST 114 H (15-37) U/L ALT (12-78) U/L Alkaline Phosphatase (45-117) U/L Total Protein (6.4-8.2) gm/dl Albumin (3.4-5.0) gm/dl
[2019-06-26] MEDS: ONDANSETRON INJ 2 MG/ML 2 ML VIAL IV PRN (09:51)
[2019-06-26 10:40] LABS: Pregnancy Test, Urine Negative (Negative)
--- NOTE | 2019-06-26 11:02 | History & Physical Bridge Note ---
Date of Service June 26, 2019 History & Physical Bridge Note I have examined the patient, reviewed the History & Physical and in the interval since the performance of the History & Physical I have noted the following changes of clinical significance: no changes noted I discussed with the patient regarding her MRCP finding of CBD stone and elevated LFTs. I also discussed the case with from general surgery who agreed to help us perform a laparoscopic assisted ERCP by creating a 15 mm port in the remnant stomach. Explained to the patient and she agreed.
--- NOTE | 2019-06-26 12:33 | Surgery Consultation ---
Date of Consultation June 26, 2019 Assessment & Plan (1) Elevated bilirubin: Clinically doing okay however MRCP does show a distal common bile duct stone. I was approached by Dr. Jules about obtaining him an access port to do his ERCP through her gastric remnant. She should have her gallbladder removed as well. We should be able to perform a laparoscopic cholecystectomy and then use a 15 mm port and obtain access to the gastric remnant. We will then have to close the gastrotomy after the ERCP is complete. The risk benefit would favor this over an open common bile duct exploration. I discussed the risks with her which include bleeding, infection, DVT, PE, ND, CVA, bile leaks or bile duct injury, gastric leaks, injury to other organs such as liver bile ducts stomach small bowel etc. Following our discussion I answered all of her questions. We will proceed with laparoscopic cholecystectomy as well as gastrotomy and gastrotomy closure after the ERCP. (2) Elevated LFTs: (3) Right upper quadrant abdominal pain: (4) Choledocholithiasis with acute cholecystitis with obstruction: History of Present Illness Attending Physician: Clif Adair MD History of Present Illness 38-year-old female who presented to the emergency room with abdominal pain. She has a history of Jessi-en-Y gastric bypass at [facility] in the past and has lost over 100 pounds. Work-up has shown gallstones as well as a distal common bile duct stone. She also has elevated LFTs. Allergies Allergy/AdvReac Type Severity Reaction Status Date / Time metformin Allergy Unknown THROAT Verified 06/24/19 18:48 SWELLING topiramate [From Topamax] AdvReac Severe OUT OF Verified 06/24/19 18:48 BODY EXPERIENCE Home Medications Home Medications Medication Instructions Recorded Confirmed Type acetaminophen [Tylenol] 650 mg PO QID PRN 06/24/19 06/24/19 History albuterol sulfate 2 puff INHALATION Q6H PRN 06/24/19 06/24/19 History atorvastatin [Lipitor] 10 mg PO DAILY 06/24/19 06/24/19 History biotin 1 mg PO DAILY 06/24/19 06/24/19 History calcium citrate 250 mg PO BID 06/24/19 06/24/19 History dulaglutide [Trulicity] 1.5 mg SUBCUT WK 06/24/19 06/24/19 History ergocalciferol (vitamin D2) 1,250 mcg PO 2XWK 06/24/19 06/24/19 History [Vitamin D2] gabapentin [Neurontin] 300 - 600 mg PO BID PRN 06/24/19 06/24/19 History insulin lispro [Humalog U-100 0 unit SUBCUT UD 06/24/19 06/24/19 History Insulin] lactulose 15 g PO BID PRN 06/24/19 06/24/19 History mometasone [Nasonex] 2 spray INTRANASAL DAILY PRN 06/24/19 06/24/19 History omeprazole 20 mg PO DAILY 06/24/19 06/24/19 History pediatric multivitamin no.76 1 tab PO DAILY 06/24/19 06/24/19 History [Flintstones Complete] riboflavin (vitamin B2) [Vitamin 400 mg PO DAILY 06/24/19 06/24/19 History B-2] sumatriptan succinate [Imitrex] 0 mg PO .COMPLEX 06/24/19 06/24/19 History terconazole 1 appful VAGINAL HS PRN 06/24/19 06/24/19 History triamcinolone acetonide 1 applic TOPICAL BID PRN 06/24/19 06/24/19 History Patient History Medical History (Updated 06/25/19 @ 13:53 by Marylu Mancuso MD) Diabetes GERD (gastroesophageal reflux disease) RENDON (nonalcoholic steatohepatitis) Surgical History (Updated 06/25/19 @ 13:40 by Marylu Mancuso MD) S/P gastric bypass Family History (Updated 06/25/19 @ 00:29 by Gris Todd DO) Other No significant family history Social History (Updated 06/25/19 @ 00:29 by Gris Todd DO) Preferred Language: Albanian Communication Ability: Effective 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 Required: No Beliefs That Will Affect Care: None Current Living Situation: Spouse Other Information That Helps Us Care for You: No Feels Safe at Home: Yes Safety Concerns: Feels Safe At This Time Smoking Status: Former smoker Tobacco Type: cigarettes ; Do You Dip or Chew Tobacco: No ; Second Hand Exposure: No ; Tobacco Cessation Education Requested by Patient: No Hx Alcohol Use: No Hx Substance Use: No Review of Systems Review of Systems: All systems reviewed & are unremarkable except as noted in HPI & below Physical Exam Constitutional: WD/WN, vitals as above no acute distress and not ill appearing Eyes: PERRL and EOM intact bilaterally Slight jaundice. ENMT: external ear and nose normal, oropharynx normal Ears: no hearing impairment Neck: trachea midline, no thyromegaly Respiratory: normal respiratory effort; no respiratory distress and does not use accessory muscles Cardiovascular: Rate/Rhythm: regular rate and regular rhythm Gastrointestinal (Abdomen): Soft. Mild epigastric and right upper quadrant tenderness to palpation. No guarding rebound or rigidity Skin: no rashes, warm and dry Psychiatric: Orientation: alert, oriented x 3 and cooperative Results & Data Vital Signs (Past 12 Hours) Vital Signs Temp Pulse Resp BP Pulse Ox 06/26/19 12:02 37 C 89 18 98/54 L 97 06/26/19 07:54 37.2 C 87 16 94/64 L 97 PG Care Time/CCT Total # of Minutes Spent Total Time Spent with Patient: Total time spent is greater than 50% in coordination of care (as documented) at patient's floor/unit and/or counseling patient: Coding Level of Care Code 07053 Inpt Consult Level 4 Diagnoses Elevated bilirubin R17 Elevated LFTs R79.89 Right upper quadrant abdominal pain R10.11 Choledocholithiasis with acute cholecystitis with obstruction K80.43
--- NOTE | 2019-06-26 13:03 | Anesthesiology Consultation ---
Date of Service June 26, 2019 Assessment & Plan (1) Encounter for pre-operative examination: Chart Review Chart Review: Acceptable Risk for Surgery and Patient NOT seen in Pre Admission Testing Consults Requested none ASA ASA3 Proposed Anesthesia Anesthesia Type: General Risk / Benefits Reviewed With: PT / POA / Parent / Guardian, Accepts Plan and Informed Consent Obtained History Surgery Operation Date: 06/26/19 08:10 Proposed Procedures p Endoscopic Retrograde Cholangiopancreato - MD madhavi Colbert Laparoscopic Cholecystectomy - Jose Alfredo Valladares, Height/Weight Height: 5 ft 1 in Weight: 85.2 kg Allergies Allergy/AdvReac Type Severity Reaction Status Date / Time metformin Allergy Unknown THROAT Verified 06/24/19 18:48 SWELLING topiramate [From Topamax] AdvReac Severe OUT OF Verified 06/24/19 18:48 BODY EXPERIENCE Medications Home Medications Medication Instructions Recorded Confirmed Last Taken acetaminophen [Tylenol] 650 mg PO QID PRN 06/24/19 06/24/19 Unknown albuterol sulfate 2 puff INHALATION Q6H PRN 06/24/19 06/24/19 Unknown atorvastatin [Lipitor] 10 mg PO DAILY 06/24/19 06/24/19 Unknown biotin 1 mg PO DAILY 06/24/19 06/24/19 Unknown calcium citrate 250 mg PO BID 06/24/19 06/24/19 Unknown dulaglutide [Trulicity] 1.5 mg SUBCUT WK 06/24/19 06/24/19 Unknown ergocalciferol (vitamin D2) 1,250 mcg PO 2XWK 06/24/19 06/24/19 Unknown [Vitamin D2] gabapentin [Neurontin] 300 - 600 mg PO BID PRN 06/24/19 06/24/19 Unknown insulin lispro [Humalog U-100 0 unit SUBCUT UD 06/24/19 06/24/19 Unknown Insulin] lactulose 15 g PO BID PRN 06/24/19 06/24/19 Unknown mometasone [Nasonex] 2 spray INTRANASAL DAILY PRN 06/24/19 06/24/19 Unknown omeprazole 20 mg PO DAILY 06/24/19 06/24/19 Unknown pediatric multivitamin no.76 1 tab PO DAILY 06/24/19 06/24/19 Unknown [Flintstones Complete] riboflavin (vitamin B2) [Vitamin 400 mg PO DAILY 06/24/19 06/24/19 Unknown B-2] sumatriptan succinate [Imitrex] 0 mg PO .COMPLEX 06/24/19 06/24/19 Unknown terconazole 1 appful VAGINAL HS PRN 06/24/19 06/24/19 Unknown triamcinolone acetonide 1 applic TOPICAL BID PRN 06/24/19 06/24/19 Unknown Active Medications Generic Name Dose Route Start Last Admin Trade Name Freq PRN Reason Stop Dose Admin Enoxaparin Sodium 40 mg 06/25/19 09:00 06/25/19 09:22 Lovenox SQ 07/25/19 08:59 40 mg QAM GANESH Administration Ciprofloxacin 400 mg in 200 mls @ 100 mls/hr 06/25/19 16:00 06/26/19 05:05 Cipro IV 07/05/19 15:59 Infused Q12H GANESH Infusion Metronidazole 500 mg in 100 mls @ 100 mls/hr 06/25/19 18:00 06/26/19 10:57 Flagyl IV 07/05/19 17:59 Infused Q8H GANESH Infusion Insulin Aspart 0 units 06/25/19 18:00 06/26/19 11:55 Novolog Flexpen SC 07/25/19 17:59 Not Given Q6 GANESH Insulin Glargine 5 units 06/25/19 00:30 06/25/19 21:58 Lantus Solostar Pen SC 07/25/19 00:29 5 units BID GANESH Administration Morphine Sulfate 2 mg 06/25/19 13:47 06/26/19 08:29 Morphine Sulfate IV 07/09/19 13:46 2 mg Q4 PRN Administration Pain Ondansetron HCl 4 mg 06/25/19 00:16 06/26/19 09:51 Zofran IV 07/25/19 00:15 4 mg Q6H PRN Administration Nausea Pantoprazole Sodium 40 mg 06/25/19 09:00 06/26/19 08:32 Protonix PO 07/25/19 08:59 40 mg DAILY GANESH Administration NPO Date Last Intake of Fluids: 06/25/19 Time Last Intake of Fluids: 03:00 Date Last Intake of Solids: 06/25/19 Time Last Intake of Solids: 03:00 Past Medical History Medical History Diabetes GERD (gastroesophageal reflux disease) RENDON (nonalcoholic steatohepatitis) Exercise / Class Metabolic Activity II 4-5 Yardwork/Stairs/Walk up hill Negative for chest pain or shortness of breath. Past Family History Family History Other No significant family history Past Surgical History Surgical History S/P gastric bypass Past Anesthesia History No Hx of Anesthesia Complications History of PONV No Hx of PONV Social History Smoking Status: Former smoker tobacco type: cigarettes Do You Dip or Chew Tobacco: No Hx Alcohol Use: No Alcohol type: wine and hard liquor alcohol intake frequency: other Alcohol Intake Frequency Comment: Once a month on special occasions. Hx Substance Use: No Review of Systems Positive for indigestion, denies vomiting Physical Exam Vital Signs Last Vital Signs Temp 37 C 06/26/19 12:02 Pulse 89 06/26/19 12:02 Resp 18 06/26/19 12:02 BP 98/54 L 06/26/19 12:02 Pulse Ox 97 06/26/19 12:02 Constitutional + obese ENMT Mouth: no TMJ abnormality and oral opening not small Thyromental Distance: > or= 3.5 Finger Breadths Mallampati Class: II Neck normal visual inspection; neck extension not limited Respiratory normal respiratory effort Auscultation: lungs clear to auscultation bilaterally Cardiovascular Rate/Rhythm: regular rate and regular rhythm Heart Sounds: no murmur Neurologic moves all extremities Motor/Sensory: no sensory deficit Psychiatric Orientation: alert and oriented x 3 Testing Laboratory Results 06/26/19 05:41 06/26/19 05:41 PT 12.4 Seconds (9.0-12.0) H 06/25/19 05:32 INR 1.2 (0.9-1.1) H 06/25/19 05:32 APTT 27.1 Seconds (21.0-31.0) 06/24/19 17:34 Hemoglobin A1c 8.7 % (4.5-5.6) H 06/25/19 05:32 Urine Color Red 06/24/19 17:35 Urine Appearance Cloudy (Clear) A 06/24/19 17:35 Urine pH >= 9.0 (4.5-7.5) H 06/24/19 17:35 Ur Specific [place] 1.015 (1.000-1.030) 06/24/19 17:35 Urine Protein 2+ (Negative) H 06/24/19 17:35 Urine Glucose (UA) 2+ (Negative) H 06/24/19 17:35 Urine Ketones 3+ (Negative) H 06/24/19 17:35 Urine Nitrite Negative (Negative) 06/24/19 17:35 Ur Leukocyte Esterase Trace (Negative) H 06/24/19 17:35 Urine RBC >30 /hpf (0-4) H 06/24/19 17:35 Urine WBC >30 /hpf (0-5) H 06/24/19 17:35 Ur Epithelial Cells >30 /lpf (0-5) H 06/24/19 17:35 Urine Test Negative (Negative) 06/26/19 10:30 06/24/19 19:03 Aerobic Blood Culture - Preliminary Blood No growth in Aerobic bottle after 24 hours. Anaerobic Blood Culture - Preliminary No growth in Anaerobic bottle after 24 hours. 06/24/19 18:51 Aerobic Blood Culture - Preliminary Blood No growth in Aerobic bottle after 24 hours. Anaerobic Blood Culture - Preliminary No growth in Anaerobic bottle after 24 hours. 06/26/19 06/26/19 11:46 06:00 POC Glucose 131 H 143 H 06/26/19 06/24/19 10:30 17:35 Urine Test Negative POC Ur Test Cancelled
[2019-06-26] MEDS ORDERED: PROMETHAZINE HCL 12.5 MG in SODIUM CHLORIDE 0.9% 50 ML IV PRN (13:08)
[2019-06-26] MEDS ORDERED: ONDANSETRON INJ 2 MG/ML 2 ML VIAL IV PRN (13:08)
[2019-06-26] MEDS ORDERED: ATROPINE SULFATE 0.1 MG/ML 10ML SYR IV PRN (13:08)
[2019-06-26] MEDS ORDERED: ePHEDrine sulfate 50 MG/ML AMP IV PRN (13:08)
[2019-06-26] MEDS ORDERED: HYDROmorphone INJ 1 MG/ML SYRINGE IV PRN (13:08)
[2019-06-26] MEDS ORDERED: fentaNYL citrate 100 MCG/2 ML VIAL ONE ×2 (13:12→16:18)
[2019-06-26] MEDS ORDERED: MIDAZOLAM HCL 1 MG/ML 2ML VIAL ONE (13:12)
[2019-06-26] MEDS ORDERED: ONDANSETRON INJ 2 MG/ML 2 ML VIAL ONE ×2 (13:12→15:59)
[2019-06-26] MEDS ORDERED: PROPOFOL IV EMULSION 10 MG/ML 20 ML VIAL IV ONE (13:12)
[2019-06-26] MEDS ORDERED: NEOSTIGMINE METHYLSULFATE 5 MG/5 ML SYR ONE (13:12)
[2019-06-26] MEDS ORDERED: LIDOCAINE HCL 2% 2 ML VIAL/AMP(20MG/ML) INFIL ONE (13:12)
[2019-06-26] MEDS ORDERED: DEXAMETHASONE SOD INJ 4 MG/ML VIAL ONE (13:12)
[2019-06-26] MEDS ORDERED: GLYCOPYRROLATE 0.2 MG/ML VIAL ONE (13:12)
[2019-06-26] MEDS ORDERED: ROCURONIUM BROMIDE 10 MG/ML 5 ML VIAL ONE ×4 (13:14→15:42)
[2019-06-26] MEDS ORDERED: SUCCINYLCHOLINE CHLORIDE 20 MG/ML 10 ML VIAL ONE (13:15)
[2019-06-26] MEDS ORDERED: INDOMETHACIN 50 MG SUPP PR ONE (13:23)
[2019-06-26] MEDS ORDERED: BUPIVACAINE 0.5 % 5 MG/1 ML MPF 30ML VIAL ONE (13:23)
[2019-06-26] MEDS ORDERED: INDOMETHACIN 50 MG SUPP PR STA (13:26)
[2019-06-26] MEDS ORDERED: BUPIVACAINE/EPINEPHRINE 0.5% MPF 1:200,000 10 ML VIAL ONE (13:27)
[2019-06-26] MEDS ORDERED: HYDROmorphone INJ 2 MG/ML SYR/VIAL ONE (15:18)
--- NOTE | 2019-06-26 16:14 | Fluoroscopy Report ---
[place] ERCP biliary ductal CLINICAL HISTORY: ERCP COMPARISON STUDY: Right upper quadrant ultrasound June 24, 2019. MRCP June 25, 2019. FLUOROSCOPY TIME: 46 seconds. FLUOROSCOPIC IMAGES: 5 FINDINGS: Fluoroscopy was provided during ERCP. These images demonstrate cannulation of the common bi le duct. There is no biliary ductal dilatation. Cholecystectomy clips are noted. Suspected pancreatic duct stent is noted on the final image. IMPRESSION: Fluoroscopy provided for ERCP, as described above. ACT 112: Negative or not required by law. Electronically signed by: Osman Camacho M.D. 06/26/2019 4:12 PM
--- NOTE | 2019-06-26 16:15 | Operative Report ---
Post Operative Report Pre & Post Diagnosis Operation Date: 06/26/19 08:10 <No data on this case meets the specified criteria> I identified the patient and participated in the time-out.: Yes Procedure Operation Date: 06/26/19 08:10 Actual Procedures s Endoscopic Retrograde Cholangiopancreato - Andreina Jules MD p Laparoscopic Cholecystectomy - Jose Alfredo Valladares DO Surgeon Andreina Jules MD Salon Supervisor None Estimated Blood Loss 0 Findings See Below (Lap assisted ERCP, Sphincterotomy done ans CBD stone removed, PD stent placed.) Specimens None Description of Procedure ERCP I attest to the content of the Intraoperative Record and any orders documented therein. Any exceptions are noted below.
--- NOTE | 2019-06-26 16:26 | GI REPORT ---
Patient Name: Lanny Naranjo Procedure Date: 06/26/2019 1:44 PM Date of : 1980 Admit Type: Inpatient Age: 38 Gender: Female Attending MD: Andreina Jules MD Procedure: ERCP Providers: Andreina Jules MD Referring MD: Clif Adair Md, Rashad Paige MD, Jose Alfredo Valladares Indications: Abnormal MRCP, For therapy of bile duct stone(s), Elevated liver enzymes, (Patient has RYGB requiring laparoscopic assisted ERCP via a gastrostomy) Medicines: General Anesthesia Complications: No immediate complications. Estimated Blood Loss: Estimated blood loss: none. Procedure: Pre-Anesthesia Assessment: - Prior to the procedure, a History and Physical was performed, and patient medications, allergies and sensitivities were reviewed. The patient's tolerance of previous anesthesia was reviewed. - The risks and benefits of the procedure and the sedation options and risks were discussed with the patient. All questions were answered and informed consent was obtained. - Patient identification and proposed procedure were verified prior to the procedure by the physician and the nurse. The procedure was verified in the procedure room. - Pre-procedure physical examination revealed no contraindications to sedation. After obtaining informed consent, the scope was passed under direct vision. Throughout the procedure, the patient's blood pressure, pulse, and oxygen saturations were monitored continuously. The Scope was introduced through the gastrostomy, and advanced to the duodenum and used to inject contrast into the bile duct. The ERCP was accomplished without difficulty. The patient tolerated the procedure well. Findings: A park ranger film of the abdomen was obtained. Surgical clips, consistent with a previous cholecystectomy, were seen in the area of the right upper quadrant of the abdomen. The scope was successfully advanced through a 15 mm port into a surgically created gastrostomy into the remnant stomach. The scope was advanced to a normal major papilla in the descending duodenum without detailed examination of the upper GI tract. The ventral pancreatic duct was inadvertently cannulated with the short-nosed traction sphincterotome and guidewire. Minimal amount of contrast was injected and the proximal pancreatic duct appeared normal. Despite multiple attempts with double wire technique, biliary tree could not be cannulated hence I performed a transpancreatic septotomy measuring 3 mm in length which was made with a monofilament sphincterotome using ERBE electrocautery. There was no post-sphincterotomy bleeding. A 0.035 inch straight standard wire was passed into the biliary tree. The Fusion OMNI sphincterotome was passed over the guidewire and the bile duct was then deeply cannulated. Contrast was injected. I personally interpreted the bile duct images. Ductal flow of contrast was adequate. Image quality was adequate. Contrast extended to the main bile duct. Opacification of the main bile duct and left and right hepatic ducts was successful. The maximum diameter of the ducts was 6 mm. Biliary sphincterotomy was made with a monofilament traction (standard) sphincterotome using ERBE electrocautery. There was no post-sphincterotomy bleeding. The biliary tree was swept with an 11.5 mm balloon and 15 mm balloon starting at the bifurcation. One stone was removed. No stones remained. One 5 Fr by 9 cm plastic pancreatic stent with a single external pigtail and no internal flaps was placed into the ventral pancreatic duct. Clear fluid flowed through the stent. The stent was in good position. Please refer to the surgical operative note for details regarding the gastrostomy. Impression: - Choledocholithiasis was found. Complete removal was accomplished by biliary sphincterotomy and balloon extraction. - One plastic pancreatic stent was placed into the ventral pancreatic duct to decrease the risk of post ERCP pancreatitis. Recommendation: - [facility]. - Avoid aspirin and nonsteroidal anti-inflammatory medicines for 5 days. - Clear liquid diet today, then advance as tolerated tomorrow. - Perform a KUB abdominal x-ray in 4 weeks to check for spontaneous migration of the PD stent, if not then will schedule a small bowel enteroscopy for removal. Andreina Jules MD 06/26/2019 4:26:24 PM This report has been signed electronically. Note Initiated On: 06/26/2019 1:44 PM Number of Addenda: 0 I attest to the content of the Intraoperative Record and orders documented therein, exceptions below {[id number]}
[2019-06-26] MEDS ORDERED: LACTATED RINGER'S 1,000 ML IV SCH (16:30)
--- NOTE | 2019-06-26 16:45 | Operative Report ---
PG Post Operative Report Pre & Post Diagnosis Operation Date: 06/26/19 08:10 Pre-Op Diagnosis: Elevated Bilirubin, Choledocholithiasis with acute cholecystitis with obstruction Post-Op Diagnosis: Elevated Bilirubin, Choledocholithiasis with acute cholecystitis with obst ruction I identified the patient and participated in the time-out.: Yes Procedure Operation Date: 06/26/19 08:10 Actual Procedures s Endoscopic Retrograde Cholangiopancreato - MD jet Colbert Laparoscopic Cholecystectomy; gastrotomy for ERCP access - Jose Alfredo Valladares DO Surgeon Jose Alfredo Valladares, Devops Solutions Architect None Estimated Blood Loss 10 Findings Consistent with Post-Op Diagnosis Specimens gallbladder Description of Procedure After informed consent was obtained the patient was taken to the operating room and placed in supine position. After successful intubation the abdomen was sterilely prepped and draped in usual fashion. I began with a supraumbilical incision and carried this down through the soft tissues using cautery. The anterior rectus fascia was opened using cautery and two #0 Vicryl stay sutures were placed. Peritoneum was entered using blunt finger penetration and a finger sweep was performed. A 12 mm Campbell trocar was placed and the abdomen was insufflated to 18 mmHg. The laparoscope was inserted and the abdomen examined in 360 degrees. A left upper quadrant 15 mm port, and 2 right upper quadrant 5 mm ports were placed under direct vision. 1 of the 5 mm ports would later be converted to a 12 mm port. The patient was placed in a reverse Trendelenburg position and slightly air planed to the left. The gallbladder was not acutely inflamed. We were able to elevate it and pull it laterally. A [place] di ssector was used to take down adhesions around the neck of the gallbladder. The cystic duct was readily identified and clipped twice proximally once distally and transected. In similar fashion the cystic artery was skeletonized clipped and divided as well. The gallbladder was removed from the gallbladder fossa and placed into an Endo Catch bag and removed from the camera port site. Thorough irrigation was performed. There was adequate hemostasis and no evidence of a bile leak. My attention then turned to the patient's gastric remnant from her prior gastric bypass. The Jessi limb looked normal as did her gastrojejunal anastomosis. I was able to find a spot on the body of the stomach anteriorly and used a 2-[address] a pursestring stitch. We then used a harmonic scalpel to perform a gastrotomy. At this point in time Dr. Jules and his GI team were able to come into the room. We draped off the abdomen such that they could access the 15 mm port. I was able to sleeve the stomach onto the port itself. I assisted in helping him gain access to the distal stomach and through the pylorus. Please see his report regarding the ERCP maneuvers themselves. He was able to extract a common bile duct stone. Once his portion of the procedure was completed we changed our gloves and got rid of the draping. I was then able to staple off the gastrotomy using LAURA purple cartridge staplers. The small portion of the stapled stomach was removed and discarded. The staple line was intact with no evidence of ischemia or obstruction. Thorough irrigation of the left and right upper quadrants were performed. Again there were no evidence of bile leaks and there was adequate hemostasis. The trochars were subsequently all removed and the abdomen desufflated. The fascia of the camera port was closed using 0 Vicryl in a [id number] fashion. All wounds were irrigated thoroughly and closed using 4-0 Monocryl. Marcaine with epinephrine was injected around them and Dermabond glue used as a dressing. The patient was awakened extubated and transferred recovery in stable condition. My physician operator assistant i cementing was present to the entire case. She helped prep the patient. She helped run the camera and retract during my dissection helped with wound closure and dressing placement. I attest to the content of the Intraoperative Record and any orders documented therein. Any exceptions are noted below.
[2019-06-26] MEDS ORDERED: INSULIN ASPART PER SC STA (17:08)
[2019-06-26] MEDS ORDERED: INSULIN ASPART PER UNIT ONE (17:13)
[2019-06-26] MEDS: fentaNYL citrate 100 MCG/2 ML VIAL IV PRN ×2 (17:15→17:25)
--- NOTE | 2019-06-26 17:44 | Anesthesiology Progress Note ---
Date of Service June 26, 2019 Anesthesia Post Procedure Vital Signs Vital Signs: Temp Pulse Pulse Resp BP Pulse Ox 06/26/19 17:35 90 15 126/84 96 06/26/19 17:25 93 H 18 143/88 H 98 06/26/19 17:15 36.7 C 92 H 17 142/90 H 100 06/26/19 17:05 96 H 21 137/91 99 06/26/19 16:57 36.4 C L 100 H 20 132/84 96 06/26/19 12:02 37 C 89 18 98/54 L 97 06/26/19 07:54 37.2 C 87 16 94/64 L 97 06/25/19 23:54 37.2 C 95 H 17 107/66 96 Pain Intensity Ribs: Pain Intensity: 0 Bilateral Head: Pain Intensity: 5 Anterior Abdomen: Pain Intensity: 8 Transfer of Care Handoff Completed per policy Notes Mental Status: alert / awake / arousable and participated in evaluation Patient Amnestic to Procedure: Yes Nausea / Vomiting: adequately controlled Pain: adequately controlled Airway Patency, RR, SpO2: stable & adequate BP & HR: stable & adequate Hydration State: stable & adequate Anesthetic Complications: no major complications apparent and Pt Satisfied with anesthetic care
[2019-06-26] MEDS ORDERED: MoRPHine SULFATE 2 MG/ML CARP IV PRN (18:21)
[2019-06-26] MEDS ORDERED: HYDROCODONE/ACETAMOPHEN 5/325MG TAB PO PRN (18:21)
[2019-06-26] MEDS ORDERED: Nursing to Pharmacy Communication ONE (18:28)
[2019-06-26] MEDS: LACTATED RINGER'S 1,000 ML IV SCH (18:33)
[2019-06-26] MEDS ORDERED: PROMETHAZINE HCL 25 MG in SODIUM CHLORIDE 0.9% 50 ML IV PRN (18:39)
[2019-06-26] MEDS: MoRPHine SULFATE 4 MG/ML 1 ML CARP\\VIAL IV PRN ×2 (20:22→23:34)
[2019-06-26] MEDS: INSULIN GLARGINE SOLOSTAR 100 UNITS/ML 3 ML PEN SC SCH (20:37)
--- NOTE | 2019-06-26 21:51 | Hospitalist Progress Note ---
Date of Service June 26, 2019 Assessment & Plan (1) Choledocholithiasis with obstruction: No convincing evidence of cholecystitis on imaging, labs, history or operation note. Will continue IV cipro + metronidazole for 24 hours post surgery but will discuss with surgery tomorrow regarding stopping antibiotics after this time. Blood cultures negative after 48 hours. Appreciate GI and surgery management with stone removed during ERCP done laparoscopically due to prior bypass. Patient having significant abdominal pain and nausea post surgical intervention although she reports having this pre-surgically in addition therefore do not suspect pancreatitis at this time unless she is to worsen overnight in which case recommend low tolerance to increasing her IV fluids. Lipase with AM labs. (2) Right upper quadrant abdominal pain: Secondary to the above (3) Elevated LFTs: As above -Hold statin from home Viral hepatitis screen pending full results (4) Diabetes: Continue Lantus 5 units twice daily (held in AM in anticipation of surgery/ERCP) -Continue insulin sliding scale Hemoglobin A1c 8.7 -Continue gabapentin presumably for diabetic peripheral neuropathy -Home atorvastatin is on hold for elevated LFTs (5) GERD (gastroesophageal reflux disease): Chronic. Stable -Protonix daily Possibly will be exacerbated due to ERCP through gastric wall. (6) RENDON (nonalcoholic steatohepatitis): Noted Secondary to morbid obesity -Should be followed routinely as an outpatient (7) S/P gastric bypass: In 2014 at [facility] -Should avoid NSAIDs Should be followed regularly for nutritional status and continue vitamin supplem ents (8) Hypokalemia: Now resolved with IV supplementation yesterday -Follow BMP in the morning (9) Situational anxiety: Patient with complaint of anxiety related to recent possible COVID exposure-now denies SOB/tachypnea as well as fevers/chills She did have nausea and vomiting as above related to her choledocholithiasis. Laboratory evidnence of lymphopenia, mildly elevated INR and abnormal LFTs. VBG suggestive of respiratory alkalosis, low pO2 at 20. She has a coworker who has a son that tested positive recently for COVID-19. The patient does not have any direct contact with known positive individuals. -Covid-19 PCR sent and is negative -Isolation precautions discontinued -Observe for development of future symptoms of COVID-19 (10) DVT prophylaxis: Lovenox 40mg SQ daily Disposition-continued inpatient stay as not yet medically stable for discharge, requiring Admission and Anticipated Discharge Date Admission Date: June 24, 2019 Subjective Patient was seen after ERCP and surgery. She reports nausea and abdominal pain but says this was similar to prior to her operation. Feeling very fatigued. Not yet passing gas. No vomiting. Review of Systems Review of Systems: All systems reviewed & are unremarkable except as noted in HPI & below Physical Exam Constitutional: WD/WN, vitals as above Eyes: + anicteric sclerae; normal pupil size ENMT: Mouth: + dry oral mucous membranes Neck: trachea midline, no thyromegaly Respiratory: normal respiratory effort, lungs clear to auscultation Cardiovascular: Rate/Rhythm: regular rhythm and + tachycardic Heart Sounds: no murmur Extremities: normal capillary refill; no edema Gastrointestinal (Abdomen): Inspection/Auscultation: normal bowel sounds Percussion/Palpation: + abdomen tender (no deep palpation due to recent surgery, generalized) and abdomen soft; no guarding and abdomen not rigid Musculoskeletal: no cyanosis or clubbing, extremities motor strength 5/5 Skin: no rashes, warm and dry Neurologic: moves all extremities and awake; not confused Psychiatric: Orientation: alert and oriented x 3 Results & Data Results & Data ([facility]) Vital Signs (Past 12 Hours) Vital Signs Temp Pulse Pulse Resp BP Pulse Ox 06/26/19 21:19 36.9 C 83 15 119/80 93 06/26/19 20:21 36.5 C 90 16 120/79 97 06/26/19 19:12 36.5 C 86 18 116/76 99 06/26/19 18:10 37.2 C 93 H 18 130/83 100 06/26/19 17:55 89 16 123/87 97 06/26/19 17:45 36.7 C 90 18 124/85 97 06/26/19 17:35 90 15 126/84 96 06/26/19 17:25 93 H 18 143/88 H 98 06/26/19 17:15 36.7 C 92 H 17 142/90 H 100 06/26/19 17:05 96 H 21 137/91 99 06/26/19 16:57 36.4 C L 100 H 20 132/84 96 06/26/19 12:02 37 C 89 18 98/54 L 97 PG Care Time/CCT Total # of Minutes Spent Total Time Spent with Patient: Total time spent is greater than 50% in coordination of care (as documented) at patient's floor/unit and/or counseling patient: Coding Level of Care Code 30864 Subseq Hosp Care Lvl 2 Diagnoses Choledocholithiasis with obstruction K80.51 Cholecystitis presence: without cholecystitis Right upper quadrant abdominal pain R10.11 Elevated LFTs R79.89 Diabetes E11.9; Z79.4 Diabetes mellitus complication status: without complication Diabetes mellitus terminal clerk insulin use: with jail use Diabetes mellitus type: type 2 GERD (gastroesophageal reflux disease) K21.9 Esophagitis presence: esophagitis presence not specified RENDON (nonalcoholic steatohepatitis) K75.81 S/P gastric bypass Z98.84 Hypokalemia E87.6 Situational anxiety F41.8 DVT prophylaxis Z29.9 (1) Diabetes Diabetes mellitus complication status: without complication Diabetes mellitus terminal clerk insulin use: with terminal clerk use Diabetes mellitus type: type 2 Qualified Code(s): E11.9 - Type 2 diabetes mellitus without complications; Z79.4 - terminal press operator (current) use of insulin (2) GERD (gastroesophageal reflux disease) Esophagitis presence: esophagitis presence not specified Qualified Code(s): K21.9 - Gastro-esophageal reflux disease without esophagitis (3) Choledocholithiasis with obstruction Cholecystitis presence: without cholecystitis Qualified Code(s): K80.51 - Calculus of bile duct without cholangitis or cholecystitis with obstruction
[2019-06-27] MEDS ORDERED: INSULIN ASPART 100 UNITS/ML 3 ML PEN SC ONE
[2019-06-27] MEDS: HYDROCODONE/ACETAMOPHEN 5/325MG TAB PO PRN ×5 (02:04→23:42)
[2019-06-27] MEDS: CIPROFLOXACIN / D5W 400 MG/200 ML BAG IV SCH (03:10)
[2019-06-27] MEDS: metroNIDAZOLE 500 MG/100 ML BAG IV SCH ×2 (03:10→09:42)
[2019-06-27] MEDS: MoRPHine SULFATE 4 MG/ML 1 ML CARP\\VIAL IV PRN ×4 (05:34→22:12)
[2019-06-27] MEDS: LACTATED RINGER'S 1,000 ML IV SCH ×3 (05:48→18:12)
[2019-06-27 06:23] LABS: Basophils # (auto) 0.01 K/uL (0-0.2); Basophils % (auto) 0.1 %; Eosinophils # (auto) 0.02 K/uL (0-0.5); Eosinophils % (auto) 0.2 %; Hematocrit (blood only) 35.5 % (37-47); Hemoglobin 11.5 g/dL (12.0-16.0); Immature Granulocytes # (auto) 0.03 K/uL (0.00-0.02); Immature Granulocytes % (auto) 0.3 %; Lymphocytes # (auto) 0.86 K/uL (1.2-3.4); Lymphocytes % (auto) 9.3 %; Mean Corpuscular Hemoglobin 27.6 pg (25-34); Mean Corpuscular Hgb Conc 32.4 g/dL (32-36); Mean Corpuscular Volume 85.3 fL (80-100); Mean Platelet Volume 10.9 fL (7.4-10.4); Monocytes # (auto) 0.73 K/uL (0.11-0.59); Monocytes % (auto) 7.9 %; Neutrophils # (auto) 7.64 K/uL (1.4-6.5); Neutrophils % (auto) 82.2 %; Platelet Count 241 K/uL (130-400); RDW Coefficient of Variation 14.5 % (11.5-14.5); RDW Standard Deviation 45.1 fL (36.4-46.3); Red Blood Count 4.16 M/uL (4.2-5.4); White Blood Count 9.29 K/uL (4.8-10.8)
[2019-06-27 07:09] LABS: Albumin Level 2.6 gm/dl (3.4-5.0); BUN Creatinine Ratio 16.4 (10-20); Bilirubin Direct 1.8 mg/dl (0-0.2); Bilirubin,Total 2.2 mg/dl (0.2-1); Calcium 8.1 mg/dl (8.5-10.1); Creatinine Clr Calc Pharmacy 140.1 ml/min; Est GFR (African American) 139.9; Est GFR (Non-African American) 120.7; Potassium 4.1 mmol/L (3.5-5.1); Total Protein 6.2 gm/dl (6.4-8.2)
--- NOTE | 2019-06-27 08:25 | Gastroenterology Progress Note ---
Date of Service June 27, 2019 Assessment & Plan (1) Elevated LFTs: 38 year old female with history of RYGB presenting w/ abd pain, nausea/vomiting imaging and labs concerning for biliary obstruction. S/P CCY and ERCP w/ stone removal, pancreatic duct stent placement. Clinically feeling well, downtrending LFTs with some mild surgical sight tenderness - Avoid aspirin and nonsteroidal anti-inflammatory medicines for 5 days. - No GI contraindication - Perform a KUB abdominal x-ray in 4 weeks to check for spontaneous migration of the PD stent, if not then will schedule a small bowel enteroscopy for removal. - Can continue symptomatic management for now Will sign off. Thank you for allowing us to participate in the care of this patient. Please call with any acute changes, questions or concerns. Please see addendum below with additional recommendation from my supervising physician. Admission and Anticipated Discharge Date Admission Date: June 24, 2019 Anticipated date of discharge: 06/27/19 Supervising Physician Co-Signing Physician Notes I have personally seen and examined the patient with RAMON Jackson. Her note reflects my exam and findings. I agree with her impression and plan. Doing well post ERCP and lap adelia. Wants to eat. Can advance diet from GI perspective if cleared by surgery. Rashad Paige M.D. Subjective Pt was seen and evaluated, chart reviewed. S/P cholecystectomy, ERCP. Pain she presented with is resolved. Is having some soreness. No nausea, vomiting. No fever, chills, CP, SOB. ERCP: Choledocholithiasis was found. Complete removal wasaccomplished by biliary sphincterotomy and balloonextraction One plastic pancreatic stent was placed into theventral pancreatic duct to decrease the risk of postERCP pancreatitis. Review of Systems Constitutional: no fever, no chills and no fatigue Respiratory: no cough and no dyspnea Cardiovascular: no chest pain and no dyspnea Gastrointestinal: + abdominal pain; no coffee ground emesis, no hematemesis, no blood in stools and no melena Physical Exam Constitutional: no acute distress Respiratory: normal respiratory effort Skin: no rashes, warm and dry Results & Data ([facility]) Vital Signs (Past 12 Hours) Vital Signs Temp Pulse Resp BP BP Pulse Ox 06/27/19 07:19 36.6 C 103 H 18 107/70 96 06/27/19 04:06 36.9 C 88 16 127/87 98 06/26/19 22:29 37.0 C 81 18 116/79 94 06/26/19 21:19 36.9 C 83 15 119/80 93 Laboratory Results 06/27/19 06/27/19 06/27/19 Range/Units 08:02 05:53 05:53 WBC 9.29 (4.8-10.8) K/uL RBC 4.16 L (4.2-5.4) M/uL Hgb 11.5 L (12.0-16.0) g/dL Hct 35.5 L (37-47) % MCV 85.3 (80-100) fL MCH 27.6 (25-34) pg MCHC 32.4 (32-36) g/dL RDW Std Deviation 45.1 (36.4-46.3) fL RDW Coeff of Maria Luz 14.5 (11.5-14.5) % Plt Count 241 (130-400) K/uL MPV 10.9 H (7.4-10.4) fL Immature Gran % (Auto) 0.3 % Neut % (Auto) 82.2 % Lymph % (Auto) 9.3 % [place] % (Auto) 7.9 % Eos % (Auto) 0.2 % Baso % (Auto) 0.1 % Immature Gran # (Auto) 0.03 H (0.00-0.02) K/uL Neut # (Auto) 7.64 H (1.4-6.5) K/uL Lymph # (Auto) 0.86 L (1.2-3.4) K/uL [place] # (Auto) 0.73 H (0.11-0.59) K/uL Eos # (Auto) 0.02 (0-0.5) K/uL Baso # (Auto) 0.01 (0-0.2) K/uL Sodium 136 (136-145) mmol/L Potassium 4.1 (3.5-5.1) mmol/L Chloride 105 (98-107) mmol/L Carbon Dioxide 21 (21-32) mmol/L Anion Gap 10.0 (3-11) BUN 9 (7-18) mg/dl Creatinine 0.55 L (0.6-1.2) mg/dl Est Cr Clr Drug Dosing 140.1 ml/min Est GFR ( Amer) 139.9 Est GFR (Non-Af Amer) 120.7 BUN/Creatinine Ratio 16.4 (10-20) Glucose 242 H (70-99) mg/dl POC Glucose 177 H (70-99) mg/dl Calcium 8.1 L (8.5-10.1) mg/dl Total Bilirubin 2.2 H (0.2-1) mg/dl Direct Bilirubin 1.8 H (0-0.2) mg/dl AST 56 H (15-37) U/L ALT 276 H (12-78) U/L Alkaline Phosphatase 253 H (45-117) U/L Total Protein 6.2 L (6.4-8.2) gm/dl Albumin 2.6 L (3.4-5.0) gm/dl Amylase 95 (25-115) U/L Lipase 889 H (73-393) U/L Urine Test (Negative) POC Ur Test 06/26/19 06/26/19 06/26/19 Range/Units 23:44 18:20 17:39 WBC (4.8-10.8) K/uL RBC (4.2-5.4) M/uL Hgb (12.0-16.0) g/dL Hct (37-47) % MCV (80-100) fL MCH (25-34) pg MCHC (32-36) g/dL RDW Std Deviation (36.4-46.3) fL RDW Coeff of Maria Luz (11.5-14.5) % Plt Count (130-400) K/uL MPV (7.4-10.4) fL Immature Gran % (Auto) % Neut % (Auto) % Lymph % (Auto) % [place] % (Auto) % Eos % (Auto) % Baso % (Auto) % Immature Gran # (Auto) (0.00-0.02) K/uL Neut # (Auto) (1.4-6.5) K/uL Lymph # (Auto) (1.2-3.4) K/uL [place] # (Auto) (0.11-0.59) K/uL Eos # (Auto) (0-0.5) K/uL Baso # (Auto) (0-0.2) K/uL Sodium (136-145) mmol/L Potassium (3.5-5.1) mmol/L Chloride (98-107) mmol/L Carbon Dioxide (21-32) mmol/L Anion Gap (3-11) BUN (7-18) mg/dl Creatinine (0.6-1.2) mg/dl Est Cr Clr Drug Dosing ml/min Est GFR ( Amer) Est GFR (Non-Af Amer) BUN/Creatinine Ratio (10-20) Glucose (70-99) mg/dl POC Glucose 272 H 224 H 252 H (70-99) mg/dl Calcium (8.5-10.1) mg/dl Total Bilirubin (0.2-1) mg/dl Direct Bilirubin (0-0.2) mg/dl AST (15-37) U/L ALT (12-78) U/L Alkaline Phosphatase (45-117) U/L Total Protein (6.4-8.2) gm/dl Albumin (3.4-5.0) gm/dl Amylase (25-115) U/L Lipase (73-393) U/L Urine Test (Negative) POC Ur Test 06/26/19 06/26/19 06/26/19 Range/Units 17:01 11:46 10:30 WBC (4.8-10.8) K/uL RBC (4.2-5.4) M/uL Hgb (12.0-16.0) g/dL Hct (37-47) % MCV (80-100) fL MCH (25-34) pg MCHC (32-36) g/dL RDW Std Deviation (36.4-46.3) fL RDW Coeff of Maria Luz (11.5-14.5) % Plt Count (130-400) K/uL MPV (7.4-10.4) fL Immature Gran % (Auto) % Neut % (Auto) % Lymph % (Auto) % [place] % (Auto) % Eos % (Auto) % Baso % (Auto) % Immature Gran # (Auto) (0.00-0.02) K/uL Neut # (Auto) (1.4-6.5) K/uL Lymph # (Auto) (1.2-3.4) K/uL [place] # (Auto) (0.11-0.59) K/uL Eos # (Auto) (0-0.5) K/uL Baso # (Auto) (0-0.2) K/uL Sodium (136-145) mmol/L Potassium (3.5-5.1) mmol/L Chloride (98-107) mmol/L Carbon Dioxide (21-32) mmol/L Anion Gap (3-11) BUN (7-18) mg/dl Creatinine (0.6-1.2) mg/dl Est Cr Clr Drug Dosing ml/min Est GFR ( Amer) Est GFR (Non-Af Amer) BUN/Creatinine Ratio (10-20) Glucose (70-99) mg/dl POC Glucose 238 H 131 H (70-99) mg/dl Calcium (8.5-10.1) mg/dl Total Bilirubin (0.2-1) mg/dl Direct Bilirubin (0-0.2) mg/dl AST (15-37) U/L ALT (12-78) U/L Alkaline Phosphatase (45-117) U/L Total Protein (6.4-8.2) gm/dl Albumin (3.4-5.0) gm/dl Amylase (25-115) U/L Lipase (73-393) U/L Urine Test Negative (Negative) POC Ur Test 06/24/19 Range/Units 17:35 WBC (4.8-10.8) K/uL RBC (4.2-5.4) M/uL Hgb (12.0-16.0) g/dL Hct (37-47) % MCV (80-100) fL MCH (25-34) pg MCHC (32-36) g/dL RDW Std Deviation (36.4-46.3) fL RDW Coeff of Maria Luz (11.5-14.5) % Plt Count (130-400) K/uL MPV (7.4-10.4) fL Immature Gran % (Auto) % Neut % (Auto) % Lymph % (Auto) % [place] % (Auto) % Eos % (Auto) % Baso % (Auto) % Immature Gran # (Auto) (0.00-0.02) K/uL Neut # (Auto) (1.4-6.5) K/uL Lymph # (Auto) (1.2-3.4) K/uL [place] # (Auto) (0.11-0.59) K/uL Eos # (Auto) (0-0.5) K/uL Baso # (Auto) (0-0.2) K/uL Sodium (136-145) mmol/L Potassium (3.5-5.1) mmol/L Chloride (98-107) mmol/L Carbon Dioxide (21-32) mmol/L Anion Gap (3-11) BUN (7-18) mg/dl Creatinine (0.6-1.2) mg/dl Est Cr Clr Drug Dosing ml/min Est GFR ( Amer) Est GFR (Non-Af Amer) BUN/Creatinine Ratio (10-20) Glucose (70-99) mg/dl POC Glucose (70-99) mg/dl Calcium (8.5-10.1) mg/dl Total Bilirubin (0.2-1) mg/dl Direct Bilirubin (0-0.2) mg/dl AST (15-37) U/L ALT (12-78) U/L Alkaline Phosphatase (45-117) U/L Total Protein (6.4-8.2) gm/dl Albumin (3.4-5.0) gm/dl Amylase (25-115) U/L Lipase (73-393) U/L Urine Test (Negative) POC Ur Test Cancelled
[2019-06-27] MEDS: ENOXAPARIN INJ 40 MG/0.4 ML SYR SQ SCH (08:26)
[2019-06-27] MEDS: PANTOprazole 40 MG TAB PO SCH (08:26)
[2019-06-27] MEDS: INSULIN ASPART 100 UNITS/ML 3 ML PEN SC SCH ×5 (08:30→20:55)
[2019-06-27] MEDS: INSULIN GLARGINE SOLOSTAR 100 UNITS/ML 3 ML PEN SC SCH ×2 (08:32→20:55)
--- NOTE | 2019-06-27 10:28 | Surgery Progress Note ---
Date of Service June 27, 2019 Assessment & Plan (1) Choledocholithiasis with acute cholecystitis with obstruction: POD 1 lap adelia/ERCP LFTS improving, lipase slightly elevated can advance diet slowly repeat lipase in AM as above. clinically doing well. can slowly advance diet. Subjective feels better, some RUQ soreness, no nausea Physical Exam Gastrointestinal (Abdomen): Inspection/Auscultation: abdomen not distended Percussion/Palpation: abdomen soft Results & Data Vital Signs (Past 12 Hours) Vital Signs Temp Pulse Resp BP BP Pulse Ox 06/27/19 07:19 36.6 C 103 H 18 107/70 96 06/27/19 04:06 36.9 C 88 16 127/87 98 06/26/19 22:29 37.0 C 81 18 116/79 94 PG Care Time/CCT Total # of Minutes Spent Total Time Spent with Patient: Total time spent is greater than 50% in coordination of care (as documented) at patient's floor/unit and/or counseling patient: Coding Level of Care Code None Diagnoses Choledocholithiasis with acute cholecystitis with obstruction K80.43
[2019-06-27 14:40] LABS: Hepatitis A Antibody IgM NON-REACTIVE (NON-REACTIVE); Hepatitis B Core Antibody IgM NON-REACTIVE (NON-REACTIVE)
[2019-06-27] MEDS: PROMETHAZINE HCL 12.5 MG in SODIUM CHLORIDE 0.9% 50 ML IV PRN ×2 (14:52→23:07)
[2019-06-27] MEDS: ONDANSETRON INJ 2 MG/ML 2 ML VIAL IV PRN (18:11)
--- NOTE | 2019-06-27 23:05 | Hospitalist Progress Note ---
Date of Service June 27, 2019 Assessment & Plan (1) Choledocholithiasis with obstruction: No convincing evidence of cholecystitis on imaging, labs, history or operation note. Discussed with GI and surgery - discontinued further IV antibiotics Appreciate GI and surgery management with stone removed during ERCP done laparoscopically due to prior bypass. Patient much improved today but given ERCP needed to be performed via gastrostomy, lack of flatus and continued nausea will keep overnight for likely discharge home tomorrow. (2) Right upper quadrant abdominal pain: Secondary to the above (3) Elevated LFTs: As above. Improving. -Hold statin from home Viral hepatitis screen negative (4) Diabetes: Continue Lantus 5 units twice daily (held in AM in anticipation of surgery/ERCP) -Continue insulin sliding scale Hemoglobin A1c 8.7 -Continue gabapentin presumably for diabetic peripheral neuropathy -Home atorvastatin is on hold for elevated LFTs (5) GERD (gastroesophageal reflux disease): Chronic. Stable -Protonix daily Possibly will be exacerbated due to ERCP via gastrostomy (6) RENDON (nonalcoholic steatohepatitis): Noted Secondary to obesity -Should be followed routinely as an outpatient (7) S/P gastric bypass: In 2014 at [facility] -Should avoid NSAIDs Should be followed regularly for nutritional status and continue vitamin supplements (8) Hypokalemia: Now resolved with IV supplementation yesterday -Follow BMP in the morning (9) Situational anxiety: Patient with complaint of anxiety related to recent possible COVID exposure-now denies SOB/tachypnea as well as fevers/chills She did have nausea and vomiting as above related to her choledocholithiasis. Laboratory evidnence of lymphopenia, mildly elevated INR and abnormal LFTs. VBG suggestive of respiratory alkalosis, low pO2 at 20. She has a coworker who has a son that tested positive recently for COVID-19. The patient does not have any direct contact with known positive individuals. -Covid-19 PCR sent and is negative -Isolation precautions discontinued -Observe for development of future symptoms of COVID-19 (10) DVT prophylaxis: Lovenox 40mg SQ daily Disposition - planned discharge tomorrow pending continued improvement Admission and Anticipated Discharge Date Admission Date: June 24, 2019 Anticipated date of discharge: 06/28/19 Subjective Patient not passing much flatus since operation. Feeling quite nauseous still with significant abdominal pain around incision sites but certainly doing much better than yesterday. Possibly nausea related to [place] medication given on empty stomach. Appears to be tolerating solid food. Review of Systems Review of Systems: All systems reviewed & are unremarkable except as noted in HPI & below Physical Exam Constitutional: WD/WN, vitals as above Eyes: + anicteric sclerae; normal pupil size ENMT: external ear and nose normal, oropharynx normal Respiratory: normal respiratory effort Gastrointestinal (Abdomen): Inspection/Auscultation: normal bowel sounds Percussion/Palpation: + abdomen tender (mild, improving, around incision sites) and abdomen soft; no guarding and abdomen not rigid Skin: c/d/i incision sites Neurologic: moves all extremities and awake; not confused Psychiatric: Orientation: alert Results & Data Results & Data ([facility]) Vital Signs (Past 12 Hours) Vital Signs Temp Pulse Resp BP BP Pulse Ox 06/27/19 22:58 36.5 C 87 16 112/74 99 06/27/19 15:30 36.4 C L 99 H 18 108/69 95 06/27/19 12:10 36.5 C 95 H 18 114/76 96 PG Care Time/CCT Total # of Minutes Spent Total Time Spent with Patient: Total time spent is greater than 50% in coordination of care (as documented) at patient's floor/unit and/or counseling patient: Coding Level of Care Code 39183 Subseq Hosp Care Lvl 2 Diagnoses Choledocholithiasis with obstruction K80.51 Cholecystitis presence: without cholecystitis Right upper quadrant abdominal pain R10.11 Elevated LFTs R79.89 Diabetes E11.9; Z79.4 Diabetes mellitus complication status: without complication 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 Diabetes mellitus type: type 2 GERD (gastroesophageal reflux disease) K21.9 Esophagitis presence: esophagitis presence not specified RENDON (nonalcoholic steatohepatitis) K75.81 S/P gastric bypass Z98.84 Hypokalemia E87.6 Situational anxiety F41.8 DVT prophylaxis Z29.9 (1) Diabetes Diabetes mellitus complication status: without complication Diabetes mellitus senior 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
[2019-06-28] MEDS: LACTATED RINGER'S 1,000 ML IV SCH (01:20)
[2019-06-28] MEDS: MoRPHine SULFATE 4 MG/ML 1 ML CARP\\VIAL IV PRN (01:21)
[2019-06-28] MEDS: ONDANSETRON INJ 2 MG/ML 2 ML VIAL IV PRN (01:21)
[2019-06-28 07:03] LABS: Albumin Level 2.7 gm/dl (3.4-5.0); BUN Creatinine Ratio 13.7 (10-20); Bilirubin Direct 1.4 mg/dl (0-0.2); Calcium 8.2 mg/dl (8.5-10.1); Creatinine Clr Calc Pharmacy 141.3 ml/min; Est GFR (African American) 139.7; Est GFR (Non-African American) 120.6; Potassium 3.5 mmol/L (3.5-5.1)
[2019-06-28 07:05] LABS: Albumin Globulin Ratio 0.7 (0.9-2); Bilirubin,Total 1.9 mg/dl (0.2-1); Globulin 3.7 gm/dl (2.5-4.0); Total Protein 6.4 gm/dl (6.4-8.2)
[2019-06-28] MEDS: INSULIN GLARGINE SOLOSTAR 100 UNITS/ML 3 ML PEN SC SCH (08:20)
[2019-06-28] MEDS: INSULIN ASPART 100 UNITS/ML 3 ML PEN SC SCH ×2 (08:21→12:43)
[2019-06-28] MEDS: OXYCODONE HCL IR 5 MG TAB (IMMEDIATE RELEASE) PO PRN ×2 (08:27→12:48)
[2019-06-28] MEDS: PANTOprazole 40 MG TAB PO SCH (08:34)
[2019-06-28] MEDS: ENOXAPARIN INJ 40 MG/0.4 ML SYR SQ SCH (08:34)
--- NOTE | 2019-06-28 08:51 | Surgery Progress Note ---
Date of Service June 28, 2019 Assessment & Plan (1) Choledocholithiasis with acute cholecystitis with obstruction: POD#2 lap adelia and ERCP LFT's overall downtrending outside of a slight increase in alkp and AST Lipase down to 489 from 889 Abdomen soft, mild tenderness richard-incisionally. Incisions c/d/i Not much appetite, but okay to continue diet as tolerates Will need follow up in surgery clinic with within 1-2 weeks, will leave instructions Dispo planning per medicine as above. doing well. moncho diet this am. feeling better than yesterday. labs not normalized yet but improving ok from my standpoint for d/c when ok with primary service. f/u with me in 1-2 weeks. Subjective Patient says she feels okay. Has some soreness around her incisions. Denies nausea this morning. Doesn't have much of an appetite. No BM. Physical Exam Physical Exam: awake/alert Gastrointestinal (Abdomen): Inspection/Auscultation: + abdominal surgical incision (c/d/i with dermabond overtop); abdomen not distended Percussion/Palpation: + abdomen tender (minimal richard-incisions) and abdomen soft Results & Data Vital Signs (Past 12 Hours) Vital Signs Temp Pulse Resp BP Pulse Ox 06/28/19 07:46 36.6 C 88 100/67 98 06/27/19 22:58 36.5 C 87 16 112/74 99 PG Care Time/CCT Total # of Minutes Spent Total Time Spent with Patient: Total time spent is greater than 50% in coordination of care (as documented) at patient's floor/unit and/or counseling patient: Coding Level of Care Code None Diagnoses Choledocholithiasis with acute cholecystitis with obstruction K80.43
--- NOTE | 2019-06-28 14:09 | Discharge Summary ---
Date of Service June 28, 2019 Admission HPI Per Admitting Provider Lanny Naranjo is a 38yo C female with history of DM, GERD, RENDON presenting with 2-3 days of RUQ pain, nausea with multiple episodes of non-bloody/non-bilious emesis, fevers/chills and shortness of breath. She was seen at [facility] yesterday and had a CT scan performed and blood work. She was noted to have abnormal LFTs and was told it was secondary to her RENDON and discharged home. She has been unable to tolerate PO intake despite taking Zofran. Patient does not drink EtOH, takes Tylenol sparingly. She works at [employer]. She denies cough, no recent travel, no sick contacts. Her coworker's son francesca costello tested positive for Covid-19. She works in close proximity to her coworker, however, he has not been displaying any symptoms consistent with Covid-19. ER Course: Benadryl, Zosyn, NSS Admission Exam Per Admitting Provider General: patient in mild discomfort, non-toxic in appearance, AA&O x 4 Skin: warm, dry, intact, no rashes or lesions HEENT: NC/AT, PERRL, EOMI, +scleral icterus, conjunctiva without injection, external ear normal to inspection and nontender, nares patent, moist mucus membranes, dentition intact, no oropharyngeal lesions, +Sublingual jaundice, neck supple, trachea midline, no LAD, no thyromegaly, no JVD Heart: +S1/S2, regular, tachycardic, no m/r/g Lungs: equal air entry bilaterally, no rales/rhonchi/wheezes, no respiratory distress Abd: +BS, soft, ND, tenderness in RUQ and epigastric region, no rebound/guarding/peritoneal signs, no masses/organomegaly/ascites Ext: warm, 2+ pulses in UE/LE bilaterally, no clubbing/cyanosis or edema Neuro: nonfocal, patient AA&O x 4, speech intact, no facial droop, moving all extremities on command with equal strength 5/5 Principal Diagnosis Choledocholithiasis with obstruction Discharge Exam Constitutional WD/WN, vitals as above Respiratory normal respiratory effort Gastrointestinal (Abdomen) Percussion/Palpation: + abdomen tender (mild, much improved, around incision sites) and abdomen soft; no guarding and abdomen not rigid Skin no rashes, warm and dry Neurologic moves all extremities and awake; not confused Psychiatric Orientation: alert Discharge Data Allergies Allergy/AdvReac Type Severity Reaction Status Date / Time metformin Allergy Unknown THROAT Verified 06/24/19 18:48 SWELLING topiramate [From Topamax] AdvReac Severe OUT OF Verified 06/24/19 18:48 BODY EXPERIENCE Consultations 06/24/19 21:08 ED Decision to Admit Stat 06/25/19 00:16 Consult Gastroenterology Routine 06/26/19 14:10 Consult General Surgery Routine Procedures Performed Operation Date: 06/26/19 08:10 Actual Procedures s Endoscopic Retrograde Cholangiopancreato - MD jet Colbert Laparoscopic Cholecystectomy - Jose Alfredo Valladares, Ordered Studies 06/24/19 18:34 US gallbladder Stat IMPRESSION: 1. Cholelithiasis and gallbladder sludge. No convincing evidence of cholecystitis. No biliary ductal dilatation. 2. Hepatic steatosis. Correlate with liver function tests to exclude steatohepatitis as a cause for abdominal pain. 06/25/19 00:16 MR MRCP Routine IMPRESSION: 1. No biliary ductal dilatation. No definite choledocholithiasis. Although probably artifactual, a distal common bile duct calculus, measuring approximately 7 mm, cannot be excluded on this exam. 2. Cholelithiasis and mild gallbladder distention. 3. Suspected fatty infiltration of the liver, better depicted on prior ultrasound. Moderate splenomegaly. 4. Pancreatic glandular atrophy. 06/26/19 FL ERCP biliary ductal Routine Hospital Course (1) Choledocholithiasis with obstruction: Lanny Naranjo is a 39 year old female admitted to [facility] from June 23 to 2019 due to nausea, vomiting and abdominal pain. Elevated LFTs, Ultrasound and MRCP were concerning choledocholithiasis. She underwent ERCP performed by Dr Jules on June 25 via gastrostomy performed in conjunction with Dr Valladares who performed laparoscopic cholecystectomy. Initially she was covered for cholangitis/cholecystitis with IV ciprofloxacin + metronidazole however no indication of infection on ERCP or laparoscopic surgery therefore these were subsequently discontinued 24 hours after surgery. Pancreatic stent during ERCP. For this she requires KUB XR in 4weeks to check for spontaneous migration in the small bowel, if not then this would have to be removed via small bowel enteroscopy. She should follow up with her PCP to arrange this. Viral hepatitis panel was also performed. This showed no immunity to Hepatitis B. Given her diabetes she would meet CDC guidelines for immunization against this. (2) Right upper quadrant abdominal pain: (3) Elevated LFTs: (4) Diabetes: (5) GERD (gastroesophageal reflux disease): (6) RENDON (nonalcoholic steatohepatitis): (7) S/P gastric bypass: (8) Hypokalemia: (9) Situational anxiety: Total Time Total Time Spent Total Time Spent (In Minutes): 40 Total Time Includes: Examination of the Patient, Discharge Planning, Medication Reconciliation and Communication With Other Providers Discharge Plan Discharge Items Patient Disposition: Home - Self-Care Reason For Visit: N/V, ABNORMAL LFTS Discharge Diagnosis: Choledocholithiasis with obstruction Activity: As commented below Lifting: No more than 10 pounds Bathing: No limitations Non-emergency contact: Surgeon Call non-emergency contact if: you have any medication questions, your symptoms worsen, your pain is not controlled, you have a fever, your temperature is above 101.5, your wound has increased redness, your wound has increased drainage and your wound pain has increased Follow-up/Referrals: Jose Alfredo Valladares, [Surgeon] - (Call the office to make an appt in approx 2 weeks) Andreina Jules MD [Hospitalist] - (no follow up required but number provided in case you need someone to order KUB XR) PCP,NO [Primary Care Provider] - Diet: Low Fat Addtl Attending Provider Instructions: You were admitted to [facility] from June 23 to 2019 due to nausea, vomiting and abdominal pain. You were diagnosed with an obstructing gall stone in the bile duct. This was removed using ERCP (endoscopic retrograde pancreatography) performed by Dr Jules on June 25 via gastrostomy. In addition you had your gall bladder removed (cholecystectomy) to prevent reoccurrence performed at the same time by Dr Valladares. Initially you were covered for a potential infection with antibiotics however there was no evidence of infection from labs work, imaging and during the operation therefore these were discontinued 24 hours post surgery. A pancreatic stent was placed at the time of the operation to reduce the risk of pancreatitis. For this you will need a follow up XR to check for spontaneous migration in the small bowel, if not then this would have to be removed via small bowel enteroscopy. Please follow up with your PCP for this to be arranged. Please call the office for follow up as above for an appointment in approximately 2 weeks. Given concern for alternative etiologies regarding your elevated liver enzymes a viral hepatitis panel was performed. This showed no concern for an infection but also shows you do not have immunity to hepatitis B. The CDC currently recommends hepatitis B vaccination for adults with diabetes therefore recommend discussing this more with your primary care physician. Kind regards, Dr Clif Adair Pending Studies at Discharge: No Stand-Alone Forms: My [facility] [employer], Opioid Pain Management, Smoking Cessation Medications and DC Order Prescriptions: New ondansetron 4 mg tablet,disintegrating 4 mg PO Q4H PRN (Reason: nausea and vomiting) 4 Days Qty: 10 RF: 0 oxycodone 5 mg tablet 5 mg PO Q6H PRN (Reason: pain) Qty: 10 RF: 0 Continued terconazole 0.4 % Cream 1 appful VAGINAL HS PRN (Reason: ..) RF: 0 acetaminophen [Tylenol] 325 mg Tablet 650 mg PO QID PRN (Reason: Pain) RF: 0 atorvastatin [Lipitor] 10 mg tablet 10 mg PO DAILY RF: 0 riboflavin (vitamin B2) [Vitamin B-2] 100 mg Tablet 400 mg PO DAILY RF: 0 sumatriptan succinate [Imitrex] 50 mg Tablet 0 mg PO .COMPLEX RF: 0 triamcinolone acetonide 0.1 % cream 1 applic TOPICAL BID PRN (Reason: BREAKOUTS) RF: 0 mometasone [Nasonex] 50 mcg/actuation Lorane,Non-Aerosol 2 spray INTRANASAL DAILY PRN (Reason: Nasal Congestion) RF: 0 gabapentin [Neurontin] 300 mg capsule 300 - 600 mg PO BID PRN (Reason: Pain) RF: 0 omeprazole 20 mg capsule,delayed release(DR/EC) 20 mg PO DAILY RF: 0 ergocalciferol (vitamin D2) [Vitamin D2] 1,250 mcg (50,000 unit) Capsule 1,250 mcg PO 2XWK RF: 0 albuterol sulfate 90 mcg/actuation Hfa Aerosol Inhaler 2 puff INHALATION Q6H PRN (Reason: Shortness Of Breath) RF: 0 Humalog U-100 Insulin 100 unit/mL Cartridge 0 unit SUBCUT UD RF: 0 biotin 1 mg Tablet 1 mg PO DAILY RF: 0 lactulose 10 gram/15 mL Solution 15 g PO BID PRN (Reason: Constipation) RF: 0 calcium citrate 250 mg calcium Tablet 250 mg PO BID RF: 0 Flintstones Complete Tablet,Chewable 1 tab PO DAILY RF: 0 Trulicity 1.5 mg/0.5 mL pen injector 1.5 mg SUBCUT WK RF: 0 Discharge Orders: Discharge Order (Routine); Ordered 06/28/19 Ordered By: Clif Delgadillo/Other Patient Handouts: 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, Diabetes Healthy Meals, Diabetes Exercise Benefits, Diabetes Manage A1C Test Admission Data Admit Date/Time: 06/24/19 21:53 Attending Provider: Clif Adair Admit Provider: Gris Todd Primary Care Provider: PCP,NO Other Providers: Gris Todd ; Marquez Sprague ; Jose Alfredo Valladares Other Interventions: Discharge Summary Assessment (RN) Last Done: 06/28/19 14:58 DC Date/Time DO NOT enter until pt leaves facility: 06/28/19 15:51 Coding Level of Care Code D/C Day Management >30 mins Diagnoses Choledocholithiasis with obstruction K80.51 Cholecystitis presence: without cholecystitis Right upper quadrant abdominal pain R10.11 Elevated LFTs R79.89 Diabetes E11.9; Z79.4 Diabetes mellitus complication status: without complication 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
== END 2019-06-28 15:51 | disposition home or self-care (01) | DRG 419 ==
LOC: ED 16:43 → 3E 21:53 → SUATTDRO 21:53 → 3E 23:57